=== PATIENT | male | born 1950 | race Caucasian/White ===

== ENCOUNTER 2020-10-30 12:45 | Outpatient (REF) | payer MEDICARE, SELFPAY ==
--- NOTE | 2020-10-30 16:00 | MHC.AU.P13 ---
Adult Audiological Evaluation Date of Visit: 10/30/20 Health Screener Used: Ammonia Technician provided Telugu translation Reason for Appointment: Audiological evaluation to monitor the status of patient's known bilateral sensorineural hearing loss. He notes that the hearing aids have not been working and he hasn't been able to use them. He denies any changes to his hearing or medical history. Previous Hearing Test Results: [facility], 09/25/2018- Moderate sloping to severe sensorineural hearing loss bilaterally. Ear History: Family History of Hearing Loss?: Yes Medical History: Medical History: Diabetes, High Blood Pressure Allergies: Penicillin Hearing Instrument History- Right Ear: Principal Quality Engineer: Sherpaa Model: Hays iQ i1000 GERALDO R Serial Number: [id number] Battery Size: Rechargeable Warranty: 01/04/2020 Dispensed By: [facility] Date of Fittin11/02/2018 Hearing Instrument History- Left Ear: Principal Quality Engineer: Sherpaa Model: Nexidia iQ i1000 GERALDO R Serial Number: [id number] Battery Size: Rechargeable Warranty: 01/04/2020 Dispensed By: [facility] Date of Fittin11/02/2018 Otoscopy: Right Ear: Unremarkable Left Ear: Unremarkable Tympanometry: Right Ear: Normal Middle Ear System (Type A) Left Ear: Normal Middle Ear System (Type A) Hearing Evaluation: Transducer(s) Used: Insert Earphones, Bone Conduction Method: Conventional Audiometry Stimuli Used: Pure Tones Right Ear: Description of Hearing: Moderately severe sloping to severe sensorineural hearing loss from 250-8000 Hz. Left Ear: Description of Hearing: Moderately severe sloping to severe sensorineural hearing loss from 250-8000 Hz. Speech Recognition Threshold (SRT): Method Used: Recorded Lists Stimuli Used: Spondee Words Right Ear: 70 dBHL Left Ear: 70 dBHL Word Discrimination: Method: Recorded Lists Word Lists Used: Lista Bisil?bica (Telugu) Right Ear: 96% at 90 dBHL Left Ear: 92% at 90 dBHL Comparison: Compared to the most recent evaluation: Thresholds have decreased bilaterally. Compared to most recent evaluation: Thresholds have worsened by 10-15 dBHL from 250-2000 Hz bilaterally. Recommendations: Recommendations: Audiological re-evaluation in one year. See Hearing Aid Follow-Up note for more information. Diagnosis: Primary Diagnosis: H90.3 Bilateral Sensorineural Hearing Loss Services Performed: Services Performed: Comprehensive Audiological Evaluation (CPT 30233) Tympanometry (CPT 38953) Signature: Provider: Shannon Bahena, CCC-A
== END 2020-10-30 12:46 | disposition home or self-care (01) ==
LOC: HO.SH 12:45
PROVIDERS: Visit Provider Internal Medicine
DX: Z46.1 Encounter for fitting and adjustment of hearing aid (principal); H90.3 Sensorineural hearing loss, bilateral
CPT/HCPCS: 92557; 92567; 92593; 99499

== ENCOUNTER 2020-11-12 10:12 | Outpatient (REF) | payer MEDICARE, SELFPAY | END 2020-11-12 10:13 | disposition home or self-care (01) | LOC: HO.HAP 10:12 | PROVIDERS: Visit Provider Internal Medicine | DX: Z46.1 Encounter for fitting and adjustment of hearing aid (principal) | CPT/HCPCS: V5014 ==

== ENCOUNTER 2020-11-19 14:43 | Outpatient (REF) | payer MEDICARE, SELFPAY | END 2020-11-19 14:44 | disposition home or self-care (01) | LOC: HO.LAB 14:43 | PROVIDERS: Visit Provider Internal Medicine | DX: Z20.822 Contact with and (suspected) exposure to COVID-19 (principal) | CPT/HCPCS: 36415; C9803; U0003 ==

== ENCOUNTER 2021-01-01 11:01 | Outpatient (RCR) | payer MEDICARE, SELFPAY ==
[2021-01-01 11:14] VITALS: BP 118/68
== END 2021-02-16 09:25 | disposition other institution (70) ==
LOC: HO.PT 11:01
PROVIDERS: PCP Emergency Medicine; Visit Provider Emergency Medicine
DX: H81.11 Benign paroxysmal vertigo, right ear (principal)
CPT/HCPCS: 97112; 97161

== ENCOUNTER 2021-05-25 14:08 | Outpatient (REF) | payer MEDICARE, MEDICAID, SELFPAY ==
[2021-05-25 15:43] LABS: MANUAL DIFF FLAG NO
[2021-05-25 15:46] LABS: Basophils Absolute Auto 0.1 X10*3/uL (0.0-0.2); Basophils Percent Auto 0.5 % (0-2); Eosinophils Absolute Auto 0.5 X10*3/uL (0.0-0.4); Eosinophils Percent Auto 4.6 % (0-4); Hematocrit 37.6 % (42-52); Hemoglobin 12.2 g/dl (14.0-18.0); Imm Gran Abs Auto 0.08 X10*3/uL (0.00-0.03); Imm Gran Pct Auto 0.8 % (0.0-0.4); Lymphocytes Absolute Auto 2.5 X10*3/uL (1.2-4.9); Lymphocytes Percent Auto 24.1 % (20-40); Mean Corpuscular HGB Conc 32.4 g/dl (31.0-36.0); Mean Corpuscular Hemoglobin 30.3 pg (27.0-33.0); Mean Corpuscular Volume 93.3 fL (80-98); Mean Platelet Volume 10.4 fL (9.4-12.4); Monocytes Absolute Auto 1.1 X10*3/uL (0.1-1.2); Monocytes Percent Auto 10.6 % (2-11); Neutrophils Absolute Auto 6.3 X10*3/uL (2.0-8.3); Neutrophils Percent Auto 59.4 % (45-73); Platelet Count 237 X10*3/uL (160-400); Red Blood Count 4.03 X10*6/uL (4.60-5.80); Red Cell Distribution Width 12.9 % (11.0-16.0); White Blood Count 10.5 X10*3/uL (4.8-10.8)
[2021-05-25 16:15] LABS: Alanine Aminotransferase 20 U/L (0-40); Albumin Level 4.4 g/dL (3.5-5.0); Alkaline Phosphatase 68 U/L (39-117); Anion Gap 14 (12-20); Aspartate Amino Transferase 15 U/L (5-37); Bilirubin Total 0.3 mg/dL (0.0-1.0); Blood Urea Nitrogen 27 mg/dL (9-16); Calcium 9.5 mg/dL (8.4-10.2); Carbon Dioxide 21 mmol/L (22-29); Chloride 106 mmol/L (96-108); Estimated Glomerular Filt Rate > 60; Glucose Random 200 mg/dL (60-115); Potassium 4.7 mmol/L (3.3-5.1); Sodium 136 mmol/L (135-145)
== END 2021-05-25 14:09 | disposition home or self-care (01) ==
LOC: HO.LAB 14:08
PROVIDERS: PCP Internal Medicine; Referring Provider Internal Medicine; Visit Provider Nurse Practitioner
DX: Z01.818 Encounter for other preprocedural examination (principal)
CPT/HCPCS: 36415; 80053; 85025

== ENCOUNTER 2021-08-18 15:58 | Outpatient (REF) | payer MEDICARE, MEDICAID, SELFPAY ==
--- NOTE | 2021-08-19 09:03 | MHC.AU.P13 ---
Hearing Instrument Problem Date of Visit: 08/19/21 Right Ear: Psychology Clinician: Jose Model: Gorham iQ i1000 GERALDO R Serial Number: [id number] Repair Warranty: 01/04/2020 Battery Size: Rechargeable Tunnel Elastic Operator Zigzag: Size 4 60 gain Type of Mold: GERALDO earmold with canal lock SN: [id number] Type of Wax Guard: HearClear Dispensed By: [facility] Date of Fittin11/02/2018 Left Ear: Psychology Clinician: Jose Model: Gorham iQ i1000 GERALDO R Serial Number: [id number] Repair Warranty: 11/16/2021 Battery Size: Rechargeable Tunnel Elastic Operator Zigzag: Size 4 60 gain Type of Mold: GERALDO earmold with canal lock SN: [id number] Type of Wax Guard: HearClear Dispensed By: [facility] Date of Fittin11/02/2018 Follow-Up Summary: Left aid dropped off yesterday - not working. Cleaned and replaced wax guard and now amplifying clearly. Recommendations: Recommendations: Hearing instrument follow-up or maintenance as needed. Diagnosis Code(s): Primary Diagnosis: H90.3 Bilateral Sensorineural Hearing Loss Signature: Provider: MAZIN Lema-
== END 2021-08-18 15:59 | disposition home or self-care (01) ==
LOC: HO.HAP 15:58
PROVIDERS: Visit Provider Internal Medicine
DX: Z13.89 Encounter for screening for other disorder (principal)

== ENCOUNTER 2021-08-20 08:06 | Outpatient (REF) | payer MEDICARE, MEDICAID, SELFPAY | END 2021-08-20 08:07 | disposition home or self-care (01) | LOC: HO.HAP 08:06 | PROVIDERS: Visit Provider Internal Medicine | DX: Z13.89 Encounter for screening for other disorder (principal) ==

== ENCOUNTER 2023-02-01 11:32 | Outpatient (REF) | payer MEDICARE, MEDICAID, SELFPAY | END 2023-02-01 11:33 | disposition home or self-care (01) | LOC: HO.HAP 11:32 | PROVIDERS: Visit Provider Internal Medicine | DX: Z46.1 Encounter for fitting and adjustment of hearing aid (principal); H90.3 Sensorineural hearing loss, bilateral | CPT/HCPCS: 92592; 99499 ==

== ENCOUNTER 2023-03-24 15:56 | Outpatient (REF) | payer MEDICARE, MEDICAID, SELFPAY | END 2023-03-24 15:57 | disposition home or self-care (01) | LOC: HO.HAP 15:56 | DX: Z13.89 Encounter for screening for other disorder (principal) ==

== ENCOUNTER 2023-05-04 13:14 | Outpatient (REF) | payer MEDICARE, MEDICAID, SELFPAY | END 2023-05-04 13:15 | disposition home or self-care (01) | LOC: HO.HAP 13:14 | PROVIDERS: Visit Provider Internal Medicine | DX: Z13.89 Encounter for screening for other disorder (principal) ==

== ENCOUNTER 2023-05-05 09:34 | Outpatient (REF) | payer MEDICARE, MEDICAID, SELFPAY ==
--- NOTE | 2023-05-05 10:35 | MHC.AU.HA3 ---
Hearing Instrument Follow-Up- Binaural Date of Visit: 05/05/23 Right Ear: Aston, Model, Color, Serial Number: Jose Hart iQ 1000 GERALDO R SN: [id number] Color: Black Ccie Repair Warranty: 01/04/2020 Battery Size: Rechargeable Relations Director/Slim Tube: Size 4 60 gain Earmold/Dome/CShell/SlimTip:GERALDO earmold with canal lock SN: [id number] Type of Wax Guard: HearClear Dispensed By: [facility] Date of Fittin11/02/2018 Left Ear: Aston, Model, Color, Serial Number: Jose Hart iQ 1000 GERALDO R SN: [id number] Color: Black Ccie Repair Warranty: 11/16/2021 Battery Size: Rechargeable Relations Director/Slim Tube: Size 4 60 gain Earmold/Dome/CShell/SlimTip: GERALDO earmold with canal lock SN: [id number] Type of Wax Guard: HearClear Dispensed By: [facility] Date of Fittin11/02/2018 Follow-Up Summary: Indra returned for routine hearing aid maintenance following updated hearing evaluation (see audio). Did not reprogram as hearing is stable and Indra is happy with the sound quality. Cleaned both hearing aids and ear molds. Replaced wax guards. Indra reported some times molds get plugged with wax. Colin'ed how to change wax guard. Indra purchased one package of wax guard to be able to change at home. He has no other concerns with his hearing aids at this time. Recommendations: Hearing instrument follow-up or maintenance as needed. Diagnosis Code(s): Primary Diagnosis: H90.3 Bilateral Sensorineural Hearing Loss Signature: Provider: Saji Black, [facility]
== END 2023-05-05 09:35 | disposition home or self-care (01) ==
LOC: HO.SH 09:34
PROVIDERS: Visit Provider Internal Medicine
DX: H90.3 Sensorineural hearing loss, bilateral (principal)
CPT/HCPCS: 92557; 92567; 92593; 99499

== ENCOUNTER 2023-05-05 10:16 | Outpatient (REF) | payer SELFPAY | END 2023-05-05 10:17 | disposition home or self-care (01) | LOC: HO.HAP 10:16 | PROVIDERS: Visit Provider Internal Medicine | DX: Z46.1 Encounter for fitting and adjustment of hearing aid (principal) | CPT/HCPCS: V5267 ==

== ENCOUNTER 2023-06-15 11:49 | Outpatient (REF) | payer MEDICARE, MEDICAID, SELFPAY ==
[2023-06-15 13:20] LABS: MANUAL DIFF FLAG NO
[2023-06-15 13:30] LABS: Basophils Absolute Auto 0.1 X10*3/uL (0.0-0.2); Basophils Percent Auto 0.6 % (0-2); Eosinophils Absolute Auto 0.5 X10*3/uL (0.0-0.4); Eosinophils Percent Auto 4.8 % (0-4); Hematocrit 42.4 % (42.0-52.0); Hemoglobin 13.9 g/dl (14.0-18.0); Imm Gran Abs Auto 0.06 X10*3/uL (0.00-0.03); Imm Gran Pct Auto 0.6 % (0.0-0.4); Lymphocytes Absolute Auto 2.7 X10*3/uL (1.2-4.9); Lymphocytes Percent Auto 24.9 % (20-40); Mean Corpuscular HGB Conc 32.8 g/dl (31.0-36.0); Mean Corpuscular Hemoglobin 31.3 pg (27.0-33.0); Mean Corpuscular Volume 95.5 fL (80.0-98.0); Mean Platelet Volume 11.1 fL (9.4-12.4); Monocytes Percent Auto 9.4 % (2-11); Neutrophils Absolute Auto 6.5 x10*3/uL (2.0-8.3); Neutrophils Percent Auto 59.7 % (45-73); Platelet Count 243 X10*3/uL (160-400); Red Blood Count 4.44 X10*6/uL (4.60-5.80); Red Cell Distribution Width 13.1 % (11.0-16.0); White Blood Count 10.8 X10*3/uL (4.8-10.8)
[2023-06-15 14:11] LABS: Alanine Aminotransferase 30 U/L (0-40); Albumin Level 4.5 g/dL (3.5-5.0); Alkaline Phosphatase 70 U/L (39-117); Anion Gap 13 (12-20); Aspartate Amino Transferase 17 U/L (5-37); Bilirubin Direct 0.2 mg/dL (0.0-0.5); Bilirubin Total 0.4 mg/dL (0.0-1.0); Blood Urea Nitrogen 28 mg/dL (9-16); Calcium 10.4 mg/dL (8.4-10.2); Carbon Dioxide 25 mmol/L (22-29); Chloride 107 mmol/L (96-108); Cholesterol 128 mg/dL (<200); Estimated Glomerular Filt Rate > 60; Glucose Random 110 mg/dL (60-115); HDL Cholesterol 51 mg/dL (>40); LDL Cholesterol Calculated 50 mg/dL (<100); Potassium 4.8 mmol/L (3.3-5.1); Sodium 140 mmol/L (135-145); Total Protein 7.6 g/dL (6.5-8.0); Triglycerides 138 mg/dL (<150)
[2023-06-15 14:39] LABS: Creatinine Urine 53.56 mg/dL; Microalbum/Creatinine Ratio Ur 11.2 ug/mg cr (<30)
== END 2023-06-15 11:50 | disposition home or self-care (01) ==
LOC: HO.HHCL 11:49
PROVIDERS: Visit Provider Internal Medicine
DX: E11.9 Type 2 diabetes mellitus without complications (principal); I10 Essential (primary) hypertension
CPT/HCPCS: 36415; 80048; 80061; 80076; 82043; 85025

== ENCOUNTER 2024-06-07 14:30 | Outpatient (REF) | payer MEDICARE, MEDICAID, SELFPAY ==
--- NOTE | 2024-06-07 15:27 | MHC.AU.MED ---
Medical Clearance for Hearing Instrumentation Date: 06/07/24 Patient Name: Indra Malcolm Date of : 1950 Primary Care Provider: Toma Lund MD We have seen your patient on 06/07/24 and have determined that they are a candidate for amplification (See accompanying report). Specifically, they would benefit from: Hearing aid use in both ears There is a statute that addresses Medical Evaluation Requirements prior to fitting a patient with a hearing aid. According to [place] statute 265 CMR:6.03(1), (a) General. Except as provided in 265 CMR 6.03(1)(b), a college tutor shall not sell a hearing aid unless the prospective user has presented to the college tutor a written statement signed by a licensed physician that states that the patient's hearing loss has been medically evaluated and the patient may be considered a candidate for a hearing aid. The medical evaluation must have taken place within the preceding six months. Please note: Due to the [place] Statute referenced above, we cannot accept a signature other than that of a licensed physician. DRUG REGULATORY AFFAIRS SPECIALIST and PA signatures cannot be accepted. I am in agreement with the above recommendation. There is no medical contraindication for hearing instrumentation. Physician Signature Date Physician Name (Printed)
--- NOTE | 2024-06-07 15:35 | MHC.AU.HA1 ---
Hearing Aid Evaluation Date of Visit: 06/07/24 Historical Information: Description of Hearing: Moderately-severe to severe sensorineural hearing loss, bilaterally Current personal amplification information: Jose Hart [id number] GERALDO-[id number] fit in October 2018 Summary: Accompanied by director case management, Kelly. Has only worn left hearing aid for several months as right hearing aid has not been working. [place] supervisor; however, did not have proper length/strength in stock. Indra is eligible for new hearing aids. Opted to pursue new hearing aids instead of fixing current right hearing aid. He will continue to use just left hearing aid until new hearing aids arrive. He has right hearing aid/earmold to keep as back up if he ever wants it repaired in the future. Impressions taken, bilaterally, without incident. Will continue with rechargeable RITE style hearing aid with earmold. Indra was agreeable to changing manufacturers. Hearing Aid Prescription: Based on the individual?s shared listening needs, communication environments, dexterity, desire for connectivity, and personal preferences, the following prescription for amplification has been made: Right ear: Make, Model, Color: Phonak Audeo L70-R Color: Silver Duffy Battery Size: Rechargeable Nickel Operator/Slim Tube: 2P Type of Earmold/Dome/CShell/SlimTip: SlimTip with canal lock Left ear: Left ear prescription to be same as Right Hearing Aid above: Make, Model, Color: Phonak Audeo L70-R Color: Silver Duffy Battery Size: Rechargeable Nickel Operator/Slim Tube: 2P Type of Earmold/Dome/CShell/SlimTip: SlimTip with canal lock Accessories/Assistive Technology: Heating Element Winder Plan of Care: Patient wishes to purchase hearing aids as prescribed Action Taken/Action Needed: Medical Clearance to be requested from PCP/ENT. Hearing Instrument Fitting to be scheduled when materials arrive Primary Diagnosis: H90.3 Bilateral Sensorineural Hearing Loss Signature: Provider: Saji Black, [facility]
== END 2024-06-07 14:31 | disposition home or self-care (01) ==
LOC: HO.SH 14:30
PROVIDERS: Visit Provider Internal Medicine
DX: Z01.118 Encounter for examination of ears and hearing with other abnormal findings (principal); Z46.1 Encounter for fitting and adjustment of hearing aid; H90.3 Sensorineural hearing loss, bilateral
CPT/HCPCS: 92552; 92556; 92591; V5275

== ENCOUNTER 2024-06-16 21:50 | Inpatient (IN) | payer MEDICARE, MEDICAID, SELFPAY ==
--- NOTE | 2024-06-16 | ECG_ITS ---
Test Reason : ABD PAIN Blood Pressure : / mmHG Vent. Rate : 066 BPM Atrial Rate : 066 BPM P-R Int : 174 ms QRS Dur : 080 ms QT Int : 378 ms P-R-T Axes : 002 005 044 degrees QTc Int : 396 ms Sinus rhythm with Premature atrial complexes with Aberrant conduction Low voltage QRS Borderline ECG No previous ECGs available Referred By: Generic ED Physician Electronically Signed By:DEANA ARTEAGA
--- NOTE | ~2024-06-16 | CT_ITS ---
EXAMINATION: CT ABDOMEN AND PELVIS WITH CONTRAST CLINICAL INFORMATION: Right lower quadrant and right flank pain COMPARISON: None TECHNIQUE: Multidetector volumetric imaging was performed of the abdomen and pelvis following administration of 100 mL Omnipaque 300 intravenous contrast. Oral contrast was administered. Sagittal and coronal reformatted images were obtained on the technologist's workstation. This CT examination was performed using dose optimization techniques as appropriate, variously including the following: *Automated exposure control *Adjustment of mA and/or kV according to patient size (this includes techniques or standardized protocols for targeted exams where dose is matched to indication/reason for exam; i.e. extremities or head) *Use of iterative reconstruction technique DLP: 687 mGy-cm FINDINGS: Lung bases: Bibasilar hazy opacities. Metallic density in the right lung base. Correlate with clinical history. ABDOMINAL AND PELVIC WALL: Unremarkable. LIVER AND BILIARY TREE: Unremarkable. GALLBLADDER: Unremarkable. PANCREAS: Unremarkable. SPLEEN: Indeterminate inferior splenic R. Hdez hypoattenuating 4.8 x 2.8 cm cystic lesion probable internal septations. ADRENAL GLANDS: Coarse calcifications in the left adrenal gland are noted. KIDNEYS AND URETERS: Benign-appearing left renal cyst. Right kidney is not visualized and may be surgically or congenitally absent. GASTROINTESTINAL TRACT: Scattered colonic diverticulosis, no findings of diverticulitis. There are dilated loops of small bowel involving the proximal jejunum. With a probable transition point in the distal jejunum/proximal ileum in the lower left hemiabdomen (4:451). There is partial congenital malrotation of the small bowel. Appendix is within normal limits. VASCULAR: Unremarkable. LYMPH NODES: No lymphadenopathy. FREE FLUID: No free fluid. BLADDER: Unremarkable. PELVIC VISCERA: Unremarkable. OSSEOUS STRUCTURES: Unremarkable. CT/CT abdomen pelvis w IV con IMPRESSION: * Partial small bowel obstruction involving the proximal jejunum with a probable transition point in the distal jejunum/proximal ileum in the lower left hemiabdomen. 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 * Indeterminate inferior splenic 4.8 cm cystic lesion. * Bibasilar hazy opacities.Metallic density in the right lung base. Correlate with clinical history. * Right kidney is not visualized and may be congenitally or surgically absent. * Coarse calcifications of the left adrenal gland may be sequela of prior trauma/hemorrhage. Electronically signed by: Elke Garcias MD 06/17/2024 12:32 AM EDT RP
--- NOTE | 2024-06-16 22:19 | MHC.EDTECH ---
Patient BIBA changed into hospital attire,placed on the floor care specialist and vitals taken,EKG completed per order and sighed by provider,family at bedside
[2024-06-16 22:21] VITALS: BP 129/76; BP 156/74; PULSE 63; PULSE 64; RESP 17; TEMP 36.7; O2SAT 96; BMI 30.1
[2024-06-16 23:16] LABS: Hematocrit 40.5 % (42.0-52.0); Hemoglobin 13.5 g/dl (14.0-18.0); Mean Corpuscular HGB Conc 33.3 g/dl (31.0-36.0); Mean Corpuscular Hemoglobin 31.3 pg (27.0-33.0); Platelet Count 227 X10*3/uL (160-400); Red Blood Count 4.31 X10*6/uL (4.60-5.80); Red Cell Distribution Width 13.2 % (11.0-16.0); White Blood Count 13.4 X10*3/uL (4.8-10.8)
--- NOTE | 2024-06-16 23:19 | ED_ITS ---
HPI - Abdominal Pain General Chief Complaint: Abdominal Pain Stated Complaint: abd pain Time Seen by Provider: 06/16/24 23:18 Source: patient and family (Daughter) Mode of arrival: ambulatory Limitations: language barrier (Cape Verdean speaking only, iPad photolithographic stripper used) History of Present Illness ED Provider: Dr. 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 Patient points to his epigastric area, right lower quadrant and right flank area when asked to localize the pain. States the pain came on suddenly in his severe. He was having difficulty describing the pain. He states this is 1st episode of this type of pain. Patient had nausea but no vomiting. He denied fever and chills. Related Data Home Medications ?Medication ?Instructions ?Recorded ?Confirmed acetaminophen 500 mg oral powder 500 mg PO Q6H PRN 05/25/21 05/25/21 packet (Tylenol Extra Strength) atorvastatin 20 mg tablet 20 mg PO BEDTIME 05/25/21 05/25/21 clindamycin HCl 150 mg capsule 150 mg PO TID 05/25/21 05/25/21 glipizide 10 mg tablet 10 mg PO DAILY 05/25/21 05/25/21 ibuprofen 600 mg tablet 600 mg PO Q8H PRN 05/25/21 05/25/21 lisinopril 20 mg tablet 20 mg PO DAILY 05/25/21 05/25/21 meclizine 12.5 mg tablet 12.5 mg PO DAILY 05/25/21 05/25/21 verapamil 180 mg 24 hr 180 mg PO DAILY 05/25/21 05/25/21 capsule,extended release zoster vaccine live (PF) 19,400 ml subcut 05/25/21 05/25/21 unit/0.65 mL subcutaneous suspension (Zostavax (PF)) Previous Rx's ?Medication ?Instructions ?Recorded bisacodyl 5 mg tablet,delayed 10 mg (2 x 5 mg) PO BEDTIME 2 days 05/25/21 release (Dulcolax (bisacodyl)) #4 tabs peg 3350-electrolytes 236 240 ml PO Q10M 1 day #4,000 mL 05/25/21 gram-22.74 gram-6.74 gram-5.86 gram solution (Golytely) Allergies Allergy/AdvReac Type Severity Reaction Status Date / Time Penicillins Allergy Unknown Unknown Verified 06/16/24 22:28 [facility] Past Medical History Medical History (Updated 06/17/24 @ 02:00 by Beto Barahona MD) Renal calculi Diabetes Elevated cholesterol HTN (hypertension) Surgical History (Updated 08/04/21 @ 13:54 by Gissel Maya RN) H/O colonoscopy H/O right nephrectomy Family History Family History Father No problems noted. Mother No problems noted. Brother No problems noted. Brother No problems noted. Brother No problems noted. Sister No problems noted. Sister No problems noted. Sister No problems noted. Daughter No problems noted. Social History Social History Advance Directives: No Advance Directives Information Provided: No Physical Exam ED Vital Signs: Vital Signs - 24 hr 06/16/24 22:21 Temperature 98.0 F Pulse Rate 63 Respiratory Rate 17 Blood Pressure 129/76 Pulse Oximetry 96 Oxygen Delivery Method Room Air BMI result Body Mass Index 30.1 Vital signs were noted Exam: General: Awake, alert, oriented to person, appears to be in moderate distress secondary to his pain Head: Normocephalic, atraumatic EENT: PERRL, Lids normal, sclera normal, conjunctiva normal, nose normal , ears normal, throat without erythema or exudates Neck: Supple, no adenopathy Lung: breath sounds symmetric, no wheezing, rales or rhonchi Chest: symmetric movement, nontender Heart: regular rate and rhythm, normal S1, S2 no murmurs or rubs Abdomen: Abdomen is distended, moderately epigastric, right lower quadrant and suprapubic tenderness, normoactive bowel sounds, no rebound, no voluntary or involuntary guarding Back: no vertebral tenderness, moderate right CVA tender Extremities: no deformities, moves all extremities symmetrically Medical Decision Making Medical Decision Making MDM Narrative: 74-year-old male with a history of renal calculi, diabetes, high cholesterol, hypertension, 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 Patient states this is 1st episode of this type of pain. Vital signs were normal. Abdominal exam revealed distended abdomen with moderate epigastric, right lower quadrant and right CVA tenderness. Differential diagnosis: ?Includes but is not limited to pancreatitis, gastritis, peptic ulcer disease, appendicitis, renal colic, ureteral stone, urinary tract infection Following evaluation was ordered: CBC, CMP, lipase, urinalysis, troponin, EKG, CT scan abdomen pelvis with IV contrast Patient was initially treated with the following: IV insert, lactated Ringer's x1 L, morphine 4 mg IV, Zofran 4 mg IV Course: 01:17 My independent interpretation patient's laboratory evaluation is as follows: WBC elevated 13,400. Patient's BUN is elevated 29-this is chronic. Troponin was below detectable limits. Lipase was normal. CT scan of the abdomen pelvis with IV contrast is consistent with partial small- bowel obstruction involving the proximal jejunum with a probable transition point the distal jejunum. I did discuss the patient's disposition over tiger text with the covering surgeon, Dr. Ny and he will admit the patient for further management. Admission/Observation Consideration of admission/observation: Escalation of care including admission/observation considered Lab Data MDM Lab Attestation statement: I reviewed the patient's lab results. 06/16/24 23:11 06/16/24 23:11 Labs: Lab Results 06/16/24 Range/Units 23:11 WBC 13.4 H (4.8-10.8) X10*3/uL RBC 4.31 L (4.60-5.80) X10*6/uL Hgb 13.5 L (14.0-18.0) g/dl Hct 40.5 L (42.0-52.0) % MCV 94.0 (80.0-98.0) fL MCH 31.3 (27.0-33.0) pg MCHC 33.3 (31.0-36.0) g/dl RDW 13.2 (11.0-16.0) % Plt Count 227 (160-400) X10*3/uL MPV 10.0 (9.4-12.4) fL Absolute Nucleated RBC 0.000 (0.0-0.012) X10*3/uL Nucleated RBC % (auto) 0.0 (0.0-0.2) /100WBC Sodium 141 (135-145) mmol/L Potassium 4.8 (3.3-5.1) mmol/L Chloride 107 (96-108) mmol/L Carbon Dioxide 23 (22-29) mmol/L Anion Gap 16 (12-20) BUN 29 H (9-16) mg/dL Creatinine 1.33 (0.5-1.4) mg/dL Estim Creat Clear Calc 54.7 Estimated GFR 53 Random Glucose 158 H (60-115) mg/dL Calcium 10.2 (8.4-10.2) mg/dL Total Bilirubin 0.5 (0.0-1.0) mg/dL AST 19 (5-37) U/L ALT 25 (0-40) U/L Alkaline Phosphatase 60 (39-117) U/L Troponin I High Sens < 2.7 (<3.5-35.0) ng/L Total Protein 7.5 (6.5-8.0) g/dL Albumin 4.4 (3.5-5.0) g/dL Lipase 63 (8-78) U/L Independent Interpretation I performed an independent interpretation of an: EKG Interpretation: My independent interpretation patient's 12 EKG done at 22:11 hours is as follows: Normal sinus rhythm rate of 66, normal NV interval, QRS duration QTC interval, no ST segment elevation, no ST segment depression, no significant T- wave abnormalities, no PACs, no PVCs Radiology Impression Discussion of test interpretation with radiology: I have reviewed the radiologist's reading. Radiologist Impression: CT abdomen pelvis w IV con IMPRESSION: * Partial small bowel obstruction involving the proximal jejunum with a probable transition point in the distal jejunum/proximal ileum in the lower left hemiabdomen. 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 * Indeterminate inferior splenic 4.8 cm cystic lesion. * Bibasilar hazy opacities.Metallic density in the right lung base. Correlate with clinical history. * Right kidney is not visualized and may be congenitally or surgically absent. * Coarse calcifications of the left adrenal gland may be sequela of prior trauma/hemorrhage. Electronically signed by: Elke Garcias MD 06/17/2024 12:32 AM EDT Dictated By: Elke Garcias MD Medications Administered Discontinued Medications Generic Name Dose Route Start Last Admin Trade Name Elvira PRN Reason Stop Dose Admin Lactated Ringer's 1,000 mls @ 999 mls/hr 06/16/24 23:33 06/16/24 23:54 Lr IV 06/17/24 00:33 999 mls/hr .Q1H1M STA Administration Iohexol 85 ml 06/17/24 00:16 06/17/24 00:16 Iohexol 350 Mg/Ml 100 Ml Infus..Btl IV 06/17/24 00:17 85 ml ONCE ONE Administration Morphine Sulfate 4 mg 06/16/24 23:33 06/16/24 23:52 Morphine Sulfate 4 Mg/Ml Cartridge IVPUSH 06/16/24 23:34 4 mg ONCE STA Administration Protocol Ondansetron HCl 4 mg 06/16/24 23:33 06/16/24 23:52 Ondansetron Hcl 4 Mg/2 Ml Vial IVPUSH 06/16/24 23:34 4 mg ONCE ONE Administration Critical Care Time Critical Care Time Critical Care Time: Yes Total Critical Care Time: 35 Attestation: Critical Care: The patient was critically ill with a high probability of imminent or life threatening deterioration. I spent greater than 30 minutes of discontinuous time evaluating the patient,delivering critical care at the bedside, discussing and evaluating pertinent data with consultants. Critical care time does not include time spent performing separately billable procedures or teaching. Total time spent performing critical care was 35 minutes. Discharge Plan Discharge Clinical Impression: Partial obstruction of small intestine Patient Disposition: Admitted As Inpatient Print Language: Cape Verdean
[2024-06-16 23:36] LABS: Alanine Aminotransferase 25 U/L (0-40); Albumin Level 4.4 g/dL (3.5-5.0); Alkaline Phosphatase 60 U/L (39-117); Anion Gap 16 (12-20); Aspartate Amino Transferase 19 U/L (5-37); Bilirubin Total 0.5 mg/dL (0.0-1.0); Blood Urea Nitrogen 29 mg/dL (9-16); Calcium 10.2 mg/dL (8.4-10.2); Carbon Dioxide 23 mmol/L (22-29); Chloride 107 mmol/L (96-108); Creatinine Clr Calc Pharmacy 54.7; Estimated Glomerular Filt Rate 53; Glucose Random 158 mg/dL (60-115); Lipase 63 U/L (8-78); Potassium 4.8 mmol/L (3.3-5.1); Sodium 141 mmol/L (135-145); Total Protein 7.5 g/dL (6.5-8.0)
[2024-06-16 23:39] LABS: Troponin-I High Sensitivity < 2.7 ng/L (<3.5-35.0)
[2024-06-16] MEDS: Morphine Sulfate 4 MG/ML CARTRIDGE IVPUSH (23:52)
[2024-06-16] MEDS: ondansetron HCL 4 MG/2 ML VIAL IVPUSH (23:52)
[2024-06-16] MEDS: Lactated Ringers 1,000 ML 999 ML IV (23:54)
--- NOTE | 2024-06-16 23:59 | PC.NURSE ---
Pt BIBA for reports of upper epigastric pain. Pt Faroese speaking , accounts payable associate required, pt still having difficulty understanding and identifying pain scale. some n/v upon arrival. Labs drawn and IV placed #20 L-forearm. MD assessed pt and order for zofran, morphine and LR administered. PT at CT at this time.
[2024-06-17] MEDS: iohexoL 350 MG/ML 100 ML INFUS..BTL 85 ML IV (00:16)
[2024-06-17] MEDS: Lactated Ringers 1,000 ML 100 ML IVCONT ×2 (06:20→16:06)
[2024-06-17 07:35] VITALS: BP 111/68; PULSE 79; RESP 18; TEMP 37.1; O2SAT 95
--- NOTE | 2024-06-17 07:36 | PC.NURSE ---
pt vomiting at this rn arrival. mostly bile. is unable to elaborate on sx. states epigastric pain w/o details. skin pwd. awaits bed assignment
[2024-06-17] MEDS: ondansetron HCL 4 MG/2 ML VIAL IVPUSH (07:37)
[2024-06-17] MEDS: HYDROmorphone HCl 1 MG/ML SYRINGE 0.5 MG IVPUSH (07:38)
--- NOTE | 2024-06-17 08:37 | PHA.MEDREC ---
Addendum entered by Linda Guo RPh 06/17/24 09:18: [facility] REVIEWED Original Note: Pharmacy Consult ? Medication Reconciliation Pharmacy has completed the medication reconciliation. Utilized medical interpreter services.
[2024-06-17 08:46] LABS: Glucose, Whole Blood 145 mg/dL (60-115)
[2024-06-17 10:05] VITALS: BP 129/74; PULSE 95; RESP 18; TEMP 36.6; O2SAT 96
--- NOTE | 2024-06-17 10:42 | PC.NURSE ---
Meds from home not ordered yet,patient is a diabetic,? need for sliding scale,Dr. Ny notified
[2024-06-17 13:32] LABS: Appearance Urine Clear; Color Urine Yellow; Glucose Urine UA >=1000 mg/dL (Negative); Leukocyte Esterase Urine Small (1+) (Negative); Nitrite Urine Negative (Negative); PH 6.5 (5.0-9.0); Specific Gravity - Urine 1.025 (1.005-1.025); UMIC TRIGGER UACC YES; Urine Blood Negative (Negative); Urine Ketones Negative (Negative); Urine Protein Negative (Neg-Trace)
[2024-06-17 13:37] LABS: Bacteria Urine 1+ (None Seen); Hyaline Casts Urine 0-2 /LPF (0-2); RBC Urine 0-2 /HPF (0-2); UACC Culture Trigger YES
--- NOTE | 2024-06-17 13:59 | P.CONHOSP_ITS ---
History of Present Illness Data of Consult Service Date: 06/17/24 Primary Care Provider: Unknown Physician HPI Reason for consult: Medical management Patient is a 74-year-old Lithuanian-speaking male with a PMH significant for HLD, HTN, afx-tkozugb-sezdfiesy type 2 diabetes, and renal calculi with right nephrectomy 10 years prior in [place] who presented to the emergency department complaining of severe abdominal pain x1 day. Workup in the ED included CT abd/pelvis which found partial small obstruction and patient was admitted to the hospital under general surgery services with hospitalist consult for medical management. Patient seen with special inspector services. He is a rather poor and vague historian, unaware of his PMH or current situation. Often requires multiple prompting to answer questions. Patient continues to complain of epigastric pain. Nausea and vomiting yesterday and this morning, down the past few hours. Has not passed gas or had a bowel. Denies chest pain/pressure, palpitations. No fever, chills. Denies shortness or breath or difficulty breathing. Review of Systems 2 Review of Systems: Epigastric abdominal pain No bowel movement, not passing gas Nausea and vomiting last night and early this morning, currently better controlled Denies chest pain/pressure, palpitations No shortness a breath or difficulty breathing COUNT INCLUDES THE [facility] Medical History Renal calculi Diabetes Elevated cholesterol HTN (hypertension) Family History Father No problems noted. Mother No problems noted. Brother No problems noted. Brother No problems noted. Brother No problems noted. Sister No problems noted. Sister No problems noted. Sister No problems noted. Daughter No problems noted. Surgical History H/O colonoscopy H/O right nephrectomy Social History Household Members: None Housing: Apartment Do you presently have visiting nurse or other home services: Yes Alcohol intake: unknown Patient Tobacco Use Status: Former Tobacco user Smoked in Last 30 Days: No Use of substances other than those prescribed or required for medical reasons: No Have you been hit, kicked, punched, or otherwise hurt by someone within the past year? If so, by whom?: No Do you feel safe in your current relationship?: Yes Is there a partner from a previous relationship who is making you feel unsafe now?: No Are you made to feel afraid or neglected: No Jehovah'S Witness Healthcare Practices: christian Advance Directives: No Advance Directives Information Provided: No Do you have a plan to hurt others: No Plan Recently lost weight without trying: No Nutrition Risks: No Nutritional Risk Meds Allergies Allergy/AdvReac Type Severity Reaction Status Date / Time Penicillins Allergy Unknown Unknown Verified 06/16/24 22:28 Active Medications: Current Medications Acetaminophen (Acetaminophen 325 Mg Tablet) 650 mg PO Q6H PRN PRN Reason: Pain, Mild (Pain Scale 1-3), fever or headache Al Hydroxide/Mg Hydroxide (Magnesium Hydrox/Alum Hydrox 30 Ml Oral.Susp) 30 ml PO Q4H PRN PRN Reason: Heartburn Calcium Carbonate (Calcium Carbonate 750 Mg Tab.Chew) 750 mg PO Q4H PRN PRN Reason: Heartburn Hydromorphone HCl (Hydromorphone Hcl 1 Mg/Ml Syringe) 0.5 mg IVPUSH Q4H PRN; Protocol PRN Reason: Pain, Severe (Pain Scale 7-10) Last Admin: 06/17/24 07:38 Dose: 0.5 mg Lactated Ringer's (Lr) 1,000 mls @ 100 mls/hr IVCONT .Q10H ARTIE Last Admin: 06/17/24 06:20 Dose: 100 mls/hr Magnesium Hydroxide (Milk Of Magnesia 30 Ml Oral.Susp) 30 ml PO DAILY PRN PRN Reason: Constipation Melatonin (Melatonin 3 Mg Tablet) 6 mg PO BEDTIME PRN PRN Reason: Insomnia Ondansetron HCl (Ondansetron Hcl 4 Mg/2 Ml Vial) 4 mg IVPUSH Q8H PRN PRN Reason: Nausea and Vomiting Last Admin: 06/17/24 07:37 Dose: 4 mg Sodium Chloride (0.9 % Sodium Chloride Flush 3 Ml Syringe) 3 ml IVFLUSH QSHIFT ARTIE Last Admin: 06/17/24 07:39 Dose: Not Given Home Medications ?Medication ?Instructions ?Recorded ?Confirmed ?Last Taken ?Type lisinopril 20 mg tablet 20 mg PO DAILY 05/25/21 06/17/24 06/16/24 History verapamil 180 mg 24 hr 180 mg PO DAILY 05/25/21 06/17/24 06/16/24 History capsule,extended release atorvastatin 40 mg tablet 40 mg PO DAILY 06/17/24 06/17/24 06/16/24 History dulaglutide 0.75 mg/0.5 mL 0.75 mg subcut FR@0900 06/17/24 06/17/24 06/15/24 History subcutaneous pen injector (Trulicity) empagliflozin 25 mg-metformin ER 1 tab PO DAILY 06/17/24 06/17/24 06/16/24 History 1,000 mg tablet,extended release 24hr (Synjardy XR) glipizide 10 mg tablet, extended 10 mg PO DAILY 06/17/24 06/17/24 06/16/24 History release 24 hr Physical Exam 2 Vital Signs and Narrative: Vital Signs: Last Vital Signs Temp 97.8 F 06/17/24 10:05 Pulse 95 06/17/24 10:05 Resp 18 06/17/24 10:05 BP 129/74 06/17/24 10:05 Pulse Ox 96 06/17/24 10:05 O2 Del Method Room Air 06/17/24 10:05 BMI result Body Mass Index 30.1 General: AOx2, not fully to time or place. In no acute distress Resp: CTA bilaterally CVS: S1, S2, RRR GI: +BS, soft with mild distention, epigastric tenderness Skin: Warm, dry Neuro: Cranial nerves II-XII grossly intact bilaterally. Motor grossly intact bilaterally Extremities: No edema Results Labs 06/16/24 23:11 06/16/24 23:11 Labs: Laboratory Results - last 24 hr 06/16/24 06/17/24 06/17/24 23:11 08:42 13:09 MCV 94.0 MCH 31.3 MCHC 33.3 RDW 13.2 Plt Count 227 MPV 10.0 Absolute Nucleated RBC 0.000 Nucleated RBC % (auto) 0.0 Anion Gap 16 Estim Creat Clear Calc 54.7 Estimated GFR 53 POC Glucose 145 H Random Glucose 158 H Calcium 10.2 Total Bilirubin 0.5 AST 19 ALT 25 Alkaline Phosphatase 60 Troponin I High Sens < 2.7 Total Protein 7.5 Albumin 4.4 Lipase 63 Urine Color Yellow Urine Appearance Clear Urine pH 6.5 Ur Specific [place] 1.025 Urine Protein Negative Urine Glucose (UA) >=1000 H Urine Ketones Negative Urine Blood Negative Urine Nitrite Negative Ur Leukocyte Esterase Small (1+) H Urine RBC 0-2 Urine WBC 11-20 H Ur Squamous Epith Cells 3-5 Urine Bacteria 1+ Hyaline Casts 0-2 Imaging Radiologist's Impressions: Impressions Abdomen/Pelvis CT 06/17/24 00:00 IMPRESSION: * Partial small bowel obstruction involving the proximal jejunum with a probable transition point in the distal jejunum/proximal ileum in the lower left hemiabdomen. 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 * Indeterminate inferior splenic 4.8 cm cystic lesion. * Bibasilar hazy opacities.Metallic density in the right lung base. Correlate with clinical history. * Right kidney is not visualized and may be congenitally or surgically absent. * Coarse calcifications of the left adrenal gland may be sequela of prior trauma/hemorrhage. Electronically signed by: Elke Garcias MD 06/17/2024 12:32 AM EDT RP Assessment and Plan (1) Partial obstruction of small intestine: Status: Acute Plan Patient is a 74-year-old Lithuanian-speaking male with a PMH significant for HLD, HTN, cbx-vxibsko-mvwecbovo type 2 diabetes, and renal calculi with right nephrectomy 10 years prior in [place] who presented to the emergency department complaining of severe abdominal pain x1 day. Workup in the ED included CT abd/pelvis which found partial small obstruction and patient was admitted to the hospital under general surgery services with hospitalist consult for medical management. Partial SBO Plan per General Surgery including analgesics Pt without NGT Currently no N/V Non-insulin dependent diabetes Currently on clear liquid diet Will cover with sliding scale insulin Hold Trulicity, Synjardy, and glipizide Hx of right nephrectomy Ten years prior in [place] Creatinine slightly elevated at 1.33, up from 1.18 on 06/15/2023 Patient on maintenance fluids HTN Currently normotensive Hold lisinopril d/t elevated creatinine Will resume verapamil tomorrow HLD Continue statin Attending: Dr. Willingham Thank you for allowing us to participate in the care of this patient. Will continue to follow with you for now. Please re-consult if any acute complaints or issues arise.
--- NOTE | 2024-06-17 14:36 | P.HPGS_ITS ---
History of Present Illness History of Present Illness Date of Service: 06/17/24 Chief complaint: sbo Narrative: Indra Malcolm is a 74 year old male presents here with 1 day history of epigastric and lower abdominal pain. He has never had this before. Otherwise tolerating a diet. Has regular bowel habits. He states he is passing flatus. Discomfort is more epigastric today. Patient denies any sick contacts, no unusual diet, no new meds, no recent foreign travel. Workup including CT scan really demonstrated no acute surgical findings. Because of significant pain, patient was admitted for pain control and observation. Chart was reviewed and patient evaluated. White blood cell count is going from 10-13. Repeat lab pending today Patient has a plethora of comorbidities. Hospitalist consult will also be obtained to help in managing these. [facility] Past Medical History Medical History Renal calculi Diabetes Elevated cholesterol HTN (hypertension) Family History Family History Father No problems noted. Mother No problems noted. Brother No problems noted. Brother No problems noted. Brother No problems noted. Sister No problems noted. Sister No problems noted. Sister No problems noted. Daughter No problems noted. Surgical History Surgical History H/O colonoscopy H/O right nephrectomy Social History Social History Household Members: None Housing: Apartment Do you presently have visiting nurse or other home services: Yes Alcohol intake: unknown Patient Tobacco Use Status: Former Tobacco user Smoked in Last 30 Days: No Use of substances other than those prescribed or required for medical reasons: No Have you been hit, kicked, punched, or otherwise hurt by someone within the past year? If so, by whom?: No Do you feel safe in your current relationship?: Yes Is there a partner from a previous relationship who is making you feel unsafe now?: No Are you made to feel afraid or neglected: No Faith Healthcare Practices: jewish Advance Directives: No Advance Directives Information Provided: No Do you have a plan to hurt others: No Plan Recently lost weight without trying: No Nutrition Risks: No Nutritional Risk Meds Allergies Allergy/AdvReac Type Severity Reaction Status Date / Time Penicillins Allergy Unknown Unknown Verified 06/16/24 22:28 Active Medications: Current Medications Acetaminophen (Acetaminophen 325 Mg Tablet) 650 mg PO Q6H PRN PRN Reason: Pain, Mild (Pain Scale 1-3), fever or headache Al Hydroxide/Mg Hydroxide (Magnesium Hydrox/Alum Hydrox 30 Ml Oral.Susp) 30 ml PO Q4H PRN PRN Reason: Heartburn Calcium Carbonate (Calcium Carbonate 750 Mg Tab.Chew) 750 mg PO Q4H PRN PRN Reason: Heartburn Hydromorphone HCl (Hydromorphone Hcl 1 Mg/Ml Syringe) 0.5 mg IVPUSH Q4H PRN; Protocol PRN Reason: Pain, Severe (Pain Scale 7-10) Last Admin: 06/17/24 07:38 Dose: 0.5 mg Lactated Ringer's (Lr) 1,000 mls @ 100 mls/hr IVCONT .Q10H [facility] Last Admin: 06/17/24 06:20 Dose: 100 mls/hr Magnesium Hydroxide (Milk Of Magnesia 30 Ml Oral.Susp) 30 ml PO DAILY PRN PRN Reason: Constipation Melatonin (Melatonin 3 Mg Tablet) 6 mg PO BEDTIME PRN PRN Reason: Insomnia Ondansetron HCl (Ondansetron Hcl 4 Mg/2 Ml Vial) 4 mg IVPUSH Q8H PRN PRN Reason: Nausea and Vomiting Last Admin: 06/17/24 07:37 Dose: 4 mg Sodium Chloride (0.9 % Sodium Chloride Flush 3 Ml Syringe) [facility] Last Admin: 06/17/24 07:39 Dose: Not Given Home Medications ?Medication ?Instructions ?Recorded ?Confirmed ?Last Taken ?Type lisinopril 20 mg tablet 20 mg PO DAILY 05/25/21 06/17/24 06/16/24 History verapamil 180 mg 24 hr 180 mg PO DAILY 05/25/21 06/17/24 06/16/24 History capsule,extended release atorvastatin 40 mg tablet 40 mg PO DAILY 06/17/24 06/17/24 06/16/24 History dulaglutide 0.75 mg/0.5 mL 0.75 mg subcut FR@0900 06/17/24 06/17/24 06/15/24 History subcutaneous pen injector (Trulicity) empagliflozin 25 mg-metformin ER 1 tab PO DAILY 06/17/24 06/17/24 06/16/24 History 1,000 mg tablet,extended release 24hr (Synjardy XR) glipizide 10 mg tablet, extended 10 mg PO DAILY 06/17/24 06/17/24 06/16/24 History release 24 hr Physical Exam Vital Signs: Vital Signs: Last Vital Signs Temp 97.8 F 06/17/24 10:05 Pulse 95 06/17/24 10:05 Resp 18 06/17/24 10:05 BP 129/74 06/17/24 10:05 Pulse Ox 96 06/17/24 10:05 O2 Del Method Room Air 06/17/24 10:05 BMI result Body Mass Index 30.1 GI: Other: Abdomen mildly corpulent, soft. Minimal epigastric tenderness. No evidence of any guarding, rebound, or rigidity. Results Results Labs: Short CBC 06/16/24 Range/Units 23:11 WBC 13.4 H (4.8-10.8) X10*3/uL Hgb 13.5 L (14.0-18.0) g/dl Hct 40.5 L (42.0-52.0) % Plt Count 227 (160-400) X10*3/uL BMP 06/16/24 23:11 Sodium 141 Potassium 4.8 Chloride 107 Carbon Dioxide 23 BUN 29 H Creatinine 1.33 Calcium 10.2 Liver Function 06/16/24 Range/Units 23:11 Total Bilirubin 0.5 (0.0-1.0) mg/dL AST 19 (5-37) U/L ALT 25 (0-40) U/L Alkaline Phosphatase 60 (39-117) U/L Albumin 4.4 (3.5-5.0) g/dL Urine 06/17/24 Range/Units 13:09 Urine Color Yellow Urine Appearance Clear Urine pH 6.5 (5.0-9.0) Ur Specific [place] 1.025 (1.005-1.025) Urine Protein Negative (Neg-Trace) mg/dL Urine Glucose (UA) >=1000 H (Negative) mg/dL Assessment and Plan (1) Abdominal pain: Status: Acute Plan Abdominal pain of unclear etiology. Patient is somewhat improving. Current plan is to attempt trial of clear liquids, out of bed, incentive spirometry, repeat a.m. labs. Quality Stroke Does the patient have a stroke diagnosis?: No VTE Prior VTE?: No VTE Risk Level:: Surgical - low VTE Device Contraindication: Treatment Not Indicated VTE Drug Contraindication: Treatment Not Indicated Procedures Date of Service Date of Service: 06/17/24
[2024-06-17 15:01] LABS: MANUAL DIFF FLAG NO
[2024-06-17 15:02] LABS: Basophils Percent Auto 0.3 % (0-2); Eosinophils Absolute Auto 0.1 X10*3/uL (0.0-0.4); Eosinophils Percent Auto 0.9 % (0-4); Hematocrit 42.3 % (42.0-52.0); Hemoglobin 13.8 g/dl (14.0-18.0); Imm Gran Abs Auto 0.09 X10*3/uL (0.00-0.03); Imm Gran Pct Auto 0.6 % (0.0-0.4); Mean Corpuscular HGB Conc 32.6 g/dl (31.0-36.0); Mean Corpuscular Hemoglobin 30.7 pg (27.0-33.0); Mean Platelet Volume 10.1 fL (9.4-12.4); Monocytes Absolute Auto 1.2 X10*3/uL (0.1-1.2); Monocytes Percent Auto 8.8 % (2-11); Neutrophils Absolute Auto 11.6 x10*3/uL (2.0-8.3); Neutrophils Percent Auto 82.4 % (45-73); Platelet Count 231 X10*3/uL (160-400); Red Cell Distribution Width 13.3 % (11.0-16.0); White Blood Count 14.1 X10*3/uL (4.8-10.8)
[2024-06-17 15:48] VITALS: BP 101/62; PULSE 99; RESP 18; TEMP 36.3; O2SAT 97
[2024-06-17 16:34] LABS: Glucose, Whole Blood 103 mg/dL (60-115)
[2024-06-17] MEDS: oxyCODONE HCl Immed Release 5 MG TABLET PO ×2 (19:19→22:51)
[2024-06-17 19:40] VITALS: BP 109/60; PULSE 85; RESP 18; TEMP 36.6
[2024-06-17 20:20] LABS: Glucose, Whole Blood 94 mg/dL (60-115)
[2024-06-18] VITALS: BP 110/62; PULSE 87; RESP 18; TEMP 36.2; O2SAT 97
[2024-06-18] MEDS: Lactated Ringers 1,000 ML 100 ML IVCONT (02:46)
[2024-06-18 06:00] VITALS: BP 110/62; PULSE 87; RESP 18; TEMP 36.2; O2SAT 97
[2024-06-18 07:48] VITALS: BP 122/75; PULSE 75; RESP 14; TEMP 36.4; O2SAT 97
[2024-06-18 07:49] LABS: Glucose, Whole Blood 85 mg/dL (60-115)
--- NOTE | 2024-06-18 08:01 | P.PNIM_ITS ---
Subjective Subjective Date of Service: 06/18/24 Interval History: Seen in follow up for : medical management consult Interval history: NO overnight events Physical Exam 2 Vital Signs: Vital Signs: Last Vital Signs Temp 97.5 F 06/18/24 07:48 Pulse 75 06/18/24 07:48 Resp 14 06/18/24 07:48 BP 122/75 06/18/24 07:48 Pulse Ox 97 06/18/24 07:48 O2 Del Method Room Air 06/18/24 07:48 BMI result Body Mass Index 30.1 Objective Data Active Medications Acetaminophen (Acetaminophen 325 Mg Tablet) 650 mg PO Q6H PRN PRN Reason: Pain, Mild (Pain Scale 1-3), fever or headache Al Hydroxide/Mg Hydroxide (Magnesium Hydrox/Alum Hydrox 30 Ml Oral.Susp) 30 ml PO Q4H PRN PRN Reason: Heartburn Atorvastatin Calcium (Atorvastatin Calcium 40 Mg Tablet) 40 mg PO DAILY ARTIE Calcium Carbonate (Calcium Carbonate 750 Mg Tab.Chew) 750 mg PO Q4H PRN PRN Reason: Heartburn Glucose (Glucose Gel 15 Gm Gel..Gram.) 15 gm PO Q15M PRN; Protocol PRN Reason: per Hypoglycemia Standing Ord. Hydromorphone HCl (Hydromorphone Hcl 1 Mg/Ml Syringe) 0.5 mg IVPUSH Q4H PRN; Protocol PRN Reason: Pain, Severe (Pain Scale 7-10) Last Admin: 06/17/24 07:38 Dose: 0.5 mg Documented By: ELIZABETH Lactated Ringer's (Lr) 1,000 mls @ 100 mls/hr IVCONT .Q10H [facility] Last Admin: 06/18/24 02:46 Dose: 100 mls/hr Documented By: DERRICK Dextrose (D10) 250 mls @ 750 mls/hr IV Q15M PRN; Protocol PRN Reason: per Hypoglycemia Standing Ord. Insulin Human Lispro (Insulin Lispro 100 Unit/Ml 3 Ml Vial) 0 unit SUBCUT QIDACHS [facility]; Protocol Last Admin: 06/18/24 07:51 Dose: Not Given Documented By: HOMERO Non-Admin Reason: No Insulin Coverage Magnesium Hydroxide (Milk Of Magnesia 30 Ml Oral.Susp) 30 ml PO DAILY PRN PRN Reason: Constipation Melatonin (Melatonin 3 Mg Tablet) 6 mg PO BEDTIME PRN PRN Reason: Insomnia Ondansetron HCl (Ondansetron Hcl 4 Mg/2 Ml Vial) 4 mg IVPUSH Q8H PRN PRN Reason: Nausea and Vomiting Last Admin: 06/17/24 07:37 Dose: 4 mg Documented By: ELIZABETH Oxycodone HCl (Oxycodone Hcl Immed Release 5 Mg Tablet) 5 mg PO Q4H PRN PRN Reason: Pain, Moderate(Pain Scale 4-6) Last Admin: 06/17/24 22:51 Dose: 5 mg Documented By: YOLANDA Sodium Chloride (0.9 % Sodium Chloride Flush 3 Ml Syringe) 3 ml IVFLUSH QSHIFT ARTIE Last Admin: 06/18/24 07:51 Dose: Not Given Documented By: HOMERO Non-Admin Reason: IV Running Verapamil HCl (Verapamil Hcl Sr 180 Mg Tablet.Er) 180 mg PO DAILY [facility]; Protocol Labs 06/18/24 08:32 06/18/24 08:32 Labs: Laboratory Results - last 24 hr 06/17/24 06/17/24 06/17/24 08:42 13:09 14:45 MCV 94.0 MCH 30.7 MCHC 32.6 RDW 13.3 Plt Count 231 MPV 10.1 Immature Gran % (Auto) 0.6 H Neut % (Auto) 82.4 H Lymph % (Auto) 7.0 L [place] % (Auto) 8.8 Eos % (Auto) 0.9 Baso % (Auto) 0.3 Lymph # (Auto) 1.0 L [place] # (Auto) 1.2 Eos # (Auto) 0.1 Baso # (Auto) 0.0 Abs Immat Gran (auto) 0.09 H Absolute Neuts (auto) 11.6 H Absolute Nucleated RBC 0.000 Nucleated RBC % (auto) 0.0 POC Glucose 145 H Urine Color Yellow Urine Appearance Clear Urine pH 6.5 Ur Specific [place] 1.025 Urine Protein Negative Urine Glucose (UA) >=1000 H Urine Ketones Negative Urine Blood Negative Urine Nitrite Negative Ur Leukocyte Esterase Small (1+) H Urine RBC 0-2 Urine WBC 11-20 H Ur Squamous Epith Cells 3-5 Urine Bacteria 1+ Hyaline Casts 0-2 06/17/24 06/17/24 06/18/24 16:25 19:43 07:45 MCV MCH MCHC RDW Plt Count MPV Immature Gran % (Auto) Neut % (Auto) Lymph % (Auto) [place] % (Auto) Eos % (Auto) Baso % (Auto) Lymph # (Auto) [place] # (Auto) Eos # (Auto) Baso # (Auto) Abs Immat Gran (auto) Absolute Neuts (auto) Absolute Nucleated RBC Nucleated RBC % (auto) POC Glucose 103 94 85 Urine Color Urine Appearance Urine pH Ur Specific [place] Urine Protein Urine Glucose (UA) Urine Ketones Urine Blood Urine Nitrite Ur Leukocyte Esterase Urine RBC Urine WBC Ur Squamous Epith Cells Urine Bacteria Hyaline Casts Assessment and Plan (1) Partial obstruction of small intestine: Status: Acute Plan 74-year-old Belizean-speaking male with a PMH significant for HLD, HTN, nfo-elerefy-qtfkluotx type 2 diabetes, and renal calculi with right nephrectomy 10 years prior in [place] who presented to the emergency department complaining of severe abdominal pain x1 day. Workup in the ED included CT abd/pelvis which found partial small obstruction and patient was admitted to the hospital under general surgery services with hospitalist consult for medical management. Partial SBO Plan per General Surgery including analgesics Pt without NGT Currently no N/V Non-insulin dependent diabetes Currently on clear liquid diet, advance at the recommendation of general surgery Will cover with sliding scale insulin Hold Trulicity, Synjardy, and glipizide Hx of right nephrectomy Ten years prior in [place] Creatinine slightly elevated at 1.33, up from 1.18 on 06/15/2023 Patient on maintenance fluids HTN Currently normotensive continue verapamil. Resume lisinopril on discharge HLD Continue statin Thank you for allowing me to participate in this consult. Signing off at this time. Please do not hesitate to call for further questions or for any acute medical issues Quality Stroke Does the patient have a stroke diagnosis?: No VTE Prior VTE?: No VTE Risk Level:: Surgical - low VTE Device Contraindication: Treatment Not Indicated VTE Drug Contraindication: Treatment Not Indicated
[2024-06-18 08:33] LABS: MANUAL DIFF FLAG NO
[2024-06-18 08:38] LABS: Basophils Percent Auto 0.2 % (0-2); Eosinophils Absolute Auto 0.4 X10*3/uL (0.0-0.4); Hematocrit 37.5 % (42.0-52.0); Hemoglobin 12.5 g/dl (14.0-18.0); Imm Gran Abs Auto 0.04 X10*3/uL (0.00-0.03); Imm Gran Pct Auto 0.4 % (0.0-0.4); Lymphocytes Absolute Auto 2.1 X10*3/uL (1.2-4.9); Lymphocytes Percent Auto 23.5 % (20-40); Mean Corpuscular HGB Conc 33.3 g/dl (31.0-36.0); Mean Corpuscular Hemoglobin 31.6 pg (27.0-33.0); Mean Corpuscular Volume 94.7 fL (80.0-98.0); Monocytes Absolute Auto 0.9 X10*3/uL (0.1-1.2); Monocytes Percent Auto 10.2 % (2-11); Neutrophils Absolute Auto 5.6 x10*3/uL (2.0-8.3); Neutrophils Percent Auto 61.7 % (45-73); Platelet Count 181 X10*3/uL (160-400); Red Blood Count 3.96 X10*6/uL (4.60-5.80); Red Cell Distribution Width 13.3 % (11.0-16.0)
[2024-06-18 08:48] VITALS: BP 122/78
[2024-06-18] MEDS: Atorvastatin Calcium 40 MG TABLET PO (08:48)
[2024-06-18] MEDS: VerapamiL HCL SR 180 MG TABLET.ER PO (08:48)
--- NOTE | 2024-06-18 08:55 | W.MHC.F2F ---
Service Date Service Date: 06/19/24 Encounter Date of encounter: 06/18/24 Reasons for Services Signs and symptoms assessed: abdominal pain, PO intake, bowel habits Homebound: Leaving the home is medically contraindicated at this time without the asist of a device and/or another person due th the listed conditions above and below. Reason homebound: weakness related to hospital stay Certification: Based on the above findings, I certify that this patient is confined to the home and needs intermittent senior care care, physical therapy and/or speech therapy, or continues to need occupational therapy. The patient is under my care, and I have initiated the establishment of the plan of care. The patient will be followed by a physician who will periodically review the plan of care. Time Spent With Patient Time: Total time managing care of this patient today ____ minutes.
[2024-06-18 08:56] LABS: Anion Gap 11 (12-20); Blood Urea Nitrogen 18 mg/dL (9-16); Calcium 9.2 mg/dL (8.4-10.2); Carbon Dioxide 23 mmol/L (22-29); Chloride 109 mmol/L (96-108); Creatinine Clr Calc Pharmacy 71.3; Estimated Glomerular Filt Rate > 60; Glucose Random 100 mg/dL (60-115); Potassium 4.2 mmol/L (3.3-5.1); Sodium 139 mmol/L (135-145)
[2024-06-18 11:18] LABS: Glucose, Whole Blood 92 mg/dL (60-115)
--- NOTE | 2024-06-18 14:30 | MHC.CM.PN ---
PT CLEARED TO DC HOME TODAY WITH RESUMPTION OF HIS [facility] AND [facility] PROVIDED BY KERLINE ALLEN SPOKE TO PTS KERLINE RN, SHY [phone], SHE SAYS THEY ARRANGE PTS MEDS WEEKLY, BUT OTHERWISE HE TAKES THEM ON HIS OWN PT ALSO HAS DAILY [facility] SHY IS AWARE OF PENDING DC AND ASKS THAT DCS BE FAXED TO HER AT : [phone]
[2024-06-18] MEDS: oxyCODONE HCl Immed Release 5 MG TABLET PO ×2 (14:58→18:40)
--- NOTE | 2024-06-18 14:59 | P.DS_ITS ---
DS: Providers Provider Date of Service: 06/18/24 Date of admission: 06/17/24 05:03 Date of discharge: 06/18/24 Primary care physician: Toma Lund MD Attending physician on admission: Andres Ny Consults: 06/17/24 10:48 Consult to Hospitalist Routine Comment: Consulting Provider: Hospitalist Reason For Exam: meds from home,Diabetes Attending physician on discharge: Andres Ny DS: Diagnosis Discharge Diagnosis (1) Partial obstruction of small intestine: Status: Acute DS: Summary Hospital Course Hospital Course: HPI AT ADMISSION: Indra Malcolm is a 74 year old male presents here with 1 day history of epigastric and lower abdominal pain. He has never had this before. Otherwise tolerating a diet. Has regular bowel habits. He states he is passing flatus. Discomfort is more epigastric today. Patient denies any sick contacts, no unusual diet, no new meds, no recent foreign travel. Workup including CT scan really demonstrated no acute surgical findings. Chart was reviewed and patient evaluated. He has a surgical history significant for a nephrectomy. He had a leukocytosis of labs. HOSPITAL COURSE: Because of significant pain, patient was admitted to the surgical service for pain control and observation for the abdominal pain of unclear etiology. He felt improved and had a benign abd exam. He was started on clear liquids. The following day he felt improved and had no abdominal pain. He was passing flatus and had a BM. His WBC count normalized. He was advanced to solid diet. He was evaluated later in the day and was tolerating a solid diet without any abdominal symptoms. His abdomen was soft and nontender. He was hemodynamically stable. He felt improved and ready for discharge. He was discharged to home on 06/18/24 with resumption of his home services. He is to follow up with his PCP. Time Attestation Discharge Coordination Time (in mins): 30 Quality: Safe Use of Opioids Does Pt have an Active Cancer Diagnosis on the Problem List?: No Quality: Stroke Does the patient have a stroke diagnosis?: No Physical Exam Vital Signs: Vital Signs: Last Vital Signs Temp 97.7 F 06/18/24 18:00 Pulse 77 06/18/24 18:00 Resp 12 06/18/24 18:00 BP 120/64 06/18/24 18:00 Pulse Ox 96 06/18/24 18:00 O2 Del Method Room Air 06/18/24 18:00 BMI result Body Mass Index 30.1 Const: General: comfortable, no acute distress and alert Resp: Effort & Inspection: normal respiratory effort GI: Inspection: No distended Palpation (GI): Soft to palpation and nontender Skin: General skin exam: no rashes or lesions noted Discharge Plan Discharge Anticipated Discharge Date/Time: 06/18/24 13:57 Patient Disposition: Home Health Service Discharge Diagnosis: abd pain, PSBO Referrals: [facility] [Other] - 1 Week (RESUME PREVIOUS SERVICES ) Toma Lozano MD [Primary Care Provider] - 1 Week Discharge Medications: Continued atorvastatin 40 mg tablet 40 mg PO DAILY glipizide 10 mg tablet extended release 24hr 10 mg PO DAILY Trulicity 0.75 mg/0.5 mL pen injector 0.75 mg subcut FR@0900 Synjardy XR 25-1,000 mg tablet, IR - ER, biphasic 24hr 1 tab PO DAILY lisinopril 20 mg tablet 20 mg PO DAILY verapamil 180 mg capsule,ext rel. pellets 24 hr 180 mg PO DAILY Rx Instructions: with food Discharge Orders: Discharge Order (Routine); Ordered 06/18/24 Ordered By: Aleena Thacker Diet: Advance to usual diet Activity on Discharge: As tolerated Stand Alone Forms: Patient Portal Discharge page Print Language: Kiswahili Activity Restrictions/Additional Instructions: Follow up with your PCP. Call Your Doctor If: ? ? -Your temperature exceeds 101.5? F? ? ? -You experience excessive pain or swelling ? ? -You have an unexpected reaction to medication ? ? -You experience continued vomiting/nausea Care Plan Goals: Return to baseline health and resume normal activities. Health Concerns: PSBO Plan of Treatment: resolved with nonoperative measures f/u with PCP Assessment: Improved Discharge Date/Time: 06/18/24 18:40
[2024-06-18 15:30] VITALS: BP 120/64; PULSE 77; RESP 12; TEMP 36.5; O2SAT 96
[2024-06-18 16:30] LABS: Glucose, Whole Blood 92 mg/dL (60-115)
[2024-06-18 18:00] VITALS: BP 120/64; PULSE 77; RESP 12; TEMP 36.5; O2SAT 96
== END 2024-06-18 18:40 | disposition home health service (06) | DRG 390 ==
LOC: HO.ED 06-17 02:00 → HO.EDOVER 06-17 05:11 → HO.S3 06-17 08:02
PROVIDERS: Physician Assistant; Admitting Provider Surgery; Emergency Provider Emergency Medicine Emergency Medical Services; PCP Internal Medicine; Visit Provider Surgery
DX: K56.600 Partial intestinal obstruction, unspecified as to cause (principal); I10 Essential (primary) hypertension; E11.9 Type 2 diabetes mellitus without complications; E78.5 Hyperlipidemia, unspecified; Z90.5 Acquired absence of kidney; Z87.891 Personal history of nicotine dependence; Z79.84 Long term (current) use of oral hypoglycemic drugs; Z79.85 Long-term (current) use of injectable non-insulin antidiabetic drugs; Z79.899 Other long term (current) drug therapy
CPT/HCPCS: 36415; 74177; 80048; 80053; 81001; 82947; 83690; 84484; 85025; 85027; 87086; 93005; 99285; J1170; J2270; J2405; J7120; Q9967

== ENCOUNTER → 2024-06-17 05:03 | Outpatient (BNV) | payer MEDICARE, MEDICAID, SELFPAY | PROVIDERS: Admitting Provider Surgery; Emergency Provider Emergency Medicine Emergency Medical Services; Visit Provider Student in an Organized Health Care Education/Training Program | DX: K56.600 Partial intestinal obstruction, unspecified as to cause (principal) | CPT/HCPCS: 99222; 99232 ==

== ENCOUNTER → 2024-06-17 05:03 | Outpatient (BNV) | payer MEDICARE, MEDICAID, SELFPAY | PROVIDERS: Admitting Provider Surgery; Emergency Provider Emergency Medicine Emergency Medical Services; Visit Provider Surgery | DX: K56.600 Partial intestinal obstruction, unspecified as to cause (principal) | CPT/HCPCS: 99222; 99238; G0180 ==

== ENCOUNTER 2024-06-19 10:32 | Outpatient (REF) | payer MEDICARE, MEDICAID, SELFPAY ==
[2024-06-19 11:49] LABS: Alanine Aminotransferase 22 U/L (0-40); Albumin Level 4.4 g/dL (3.5-5.0); Alkaline Phosphatase 57 U/L (39-117); Anion Gap 13 (12-20); Aspartate Amino Transferase 23 U/L (5-37); Bilirubin Total 0.5 mg/dL (0.0-1.0); Blood Urea Nitrogen 21 mg/dL (9-16); Calcium 9.9 mg/dL (8.4-10.2); Carbon Dioxide 25 mmol/L (22-29); Chloride 105 mmol/L (96-108); Cholesterol 116 mg/dL (<200); Estimated Glomerular Filt Rate > 60; Glucose Random 103 mg/dL (60-115); HDL Cholesterol 45 mg/dL (>40); LDL Cholesterol Calculated 56 mg/dL (<100); Potassium 4.1 mmol/L (3.3-5.1); Sodium 139 mmol/L (135-145); Total Protein 7.5 g/dL (6.5-8.0); Triglycerides 75 mg/dL (<150)
[2024-06-19 13:57] LABS: Reflex LDLD? No
== END 2024-06-19 10:33 | disposition home or self-care (01) ==
LOC: HO.HHCL 10:32
PROVIDERS: Visit Provider Internal Medicine
DX: Z00.00 Encounter for general adult medical examination without abnormal findings (principal)
CPT/HCPCS: 36415; 80053; 80061

== ENCOUNTER 2024-06-22 10:05 | Outpatient (REF) | payer MEDICARE, MEDICAID, SELFPAY ==
[2024-06-22 11:10] LABS: MANUAL DIFF FLAG NO
[2024-06-22 11:20] LABS: Basophils Absolute Auto 0.1 X10*3/uL (0.0-0.2); Basophils Percent Auto 0.8 % (0-2); Eosinophils Absolute Auto 0.3 X10*3/uL (0.0-0.4); Eosinophils Percent Auto 4.5 % (0-4); Hematocrit 38.5 % (42.0-52.0); Hemoglobin 12.6 g/dl (14.0-18.0); Imm Gran Abs Auto 0.05 X10*3/uL (0.00-0.03); Imm Gran Pct Auto 0.7 % (0.0-0.4); Lymphocytes Percent Auto 27.9 % (20-40); Mean Corpuscular HGB Conc 32.7 g/dl (31.0-36.0); Mean Corpuscular Hemoglobin 31.1 pg (27.0-33.0); Mean Corpuscular Volume 95.1 fL (80.0-98.0); Mean Platelet Volume 10.6 fL (9.4-12.4); Monocytes Absolute Auto 0.6 X10*3/uL (0.1-1.2); Monocytes Percent Auto 8.9 % (2-11); Neutrophils Absolute Auto 4.1 x10*3/uL (2.0-8.3); Neutrophils Percent Auto 57.2 % (45-73); Platelet Count 223 X10*3/uL (160-400); Red Blood Count 4.05 X10*6/uL (4.60-5.80); Red Cell Distribution Width 13.2 % (11.0-16.0); White Blood Count 7.2 X10*3/uL (4.8-10.8)
[2024-06-22 12:16] LABS: Creatinine Urine 69.81 mg/dL; Microalbum/Creatinine Ratio Ur 21.4 ug/mg cr (<30)
[2024-06-22 12:17] LABS: Vitamin B12 851 pg/mL (200-900)
== END 2024-06-22 10:06 | disposition home or self-care (01) ==
LOC: HO.HHCL 10:05
PROVIDERS: Visit Provider Internal Medicine
DX: E11.65 Type 2 diabetes mellitus with hyperglycemia (principal)
CPT/HCPCS: 36415; 82043; 82570; 82607; 85025

== ENCOUNTER 2024-07-10 13:03 | Outpatient (REF) | payer MEDICARE, MEDICAID, SELFPAY ==
--- NOTE | 2024-07-10 14:15 | MHC.AU.HA2 ---
Hearing Instrument Fitting- Adult- Binaural Date of Visit: 07/10/24 Hearing Instruments Dispensed: Right Ear: Aston, Model, Color, Serial Number: Nannette Sun L70-R SN: [id number] Color: Silver Duffy Alum Mixer Repair Warranty: 07/18/2027 Alum Mixer Loss and Damage Warranty: 07/18/2027 [facility] Service Plan: 07/10/2025 Battery Size: Rechargeable Broommaker/Slim Tube: 3P Earmold/Dome/CShell/SlimTip: SlimTip with canal lock SN: [id number] Sherine: 10/16/2025 Type of Wax Guard: Cerustop Left Ear: Aston, Model, Color, Serial Number: Nannette Sun L70-R SN: [id number] Color: Silver Duffy Alum Mixer Repair Warranty: 07/18/2027 Alum Mixer Loss and Damage Warranty: 07/18/2027 [facility] Service Plan: 07/10/2025 Battery Size: Rechargeable Broommaker/Slim Tube: 3P Earmold/Dome/CShell/SlimTip: SlimTip with canal lock SN: [id number] Sherine: 10/16/2024 Type of Wax Guard: Cerustop Accessories/Assistive Technology: Steamship Agent Ease SN: [id number] Summary of Fitting: Accompanied by immigration case manager, Kelly. Ran feedback analyzer and real ear measures. Comfortable at real ear settings, noted improvement in sound quality compared to old hearing aids. Reviewed care, use, and rechargeability including manually turning on/off, cleaning, changing wax guards. As a long-time hearing aid user, Indra was familiar with general maintenance and everyday use. No interest in bluetooth. Indra did not feel a follow up was necessary at this time. He will call if any issues arise. Recommendations: Patient does not feel follow-up is necessary at this time. Diagnosis Code(s): Primary Diagnosis: H90.3 Bilateral Sensorineural Hearing Loss Signature: Provider: Saji Black, [facility]
== END 2024-07-10 13:04 | disposition home or self-care (01) ==
LOC: HO.HAP 13:03
PROVIDERS: Visit Provider Internal Medicine
DX: Z46.1 Encounter for fitting and adjustment of hearing aid (principal); H90.3 Sensorineural hearing loss, bilateral
CPT/HCPCS: V5011; V5020; V5160; V5261; V5264

== ENCOUNTER 2024-09-26 10:48 | Outpatient (REF) | payer MEDICARE, MEDICAID, SELFPAY ==
[2024-09-26 13:51] LABS: Prostate Specific Antigen 2.22 ng/mL (<0.05-4.0)
[2024-09-27 04:45] LABS: HBS Num1 0.27 mIU/mL (0-7.99); HBc Num1 0.14 S/CO (0.00-0.79); HBsAGNum1 0.35 S/CO (0.00-0.99); HIV AB/AG Nonreactive (Nonreactive); HIV Num 1 0.06 S/CO (0.00-0.99); Hepatitis B Core Antibody Nonreactive (Nonreactive); Hepatitis B Surface Antigen Negative (Negative); ~HepC Num1 0.09 S/CO (0.00-0.79); ~Hepatitis B Surface Antibody NONREACTIVE (Nonreactive); ~Hepatitis C Antibody Nonreactive (Nonreactive)
== END 2024-09-26 10:49 | disposition home or self-care (01) ==
LOC: HO.HHCL 10:48
PROVIDERS: Visit Provider Family Medicine
DX: Z11.3 Encounter for screening for infections with a predominantly sexual mode of transmission (principal); Z12.5 Encounter for screening for malignant neoplasm of prostate
CPT/HCPCS: 36415; 84153; 86704; 86706; 86803; 87340; 87389

== ENCOUNTER 2024-10-09 11:12 | Outpatient (REF) | payer MEDICARE, MEDICAID, SELFPAY | END 2024-10-09 11:13 | disposition home or self-care (01) | LOC: HO.HAP 11:12 | PROVIDERS: Visit Provider Internal Medicine | DX: Z13.89 Encounter for screening for other disorder (principal) ==

== ENCOUNTER 2024-10-16 08:56 | Outpatient (REF) | payer MEDICARE, MEDICAID, SELFPAY | END 2024-10-16 08:57 | disposition home or self-care (01) | LOC: HO.US 08:56 | PROVIDERS: PCP Internal Medicine; Visit Provider Family Medicine | DX: Z13.6 Encounter for screening for cardiovascular disorders (principal) | CPT/HCPCS: 76775 ==

== ENCOUNTER 2024-11-15 10:22 | Outpatient (REF) | payer MEDICARE, MEDICAID, SELFPAY ==
--- NOTE | 2024-11-15 11:03 | MHC.AU.HA3 ---
Hearing Instrument Follow-Up- Binaural Date of Visit: 11/15/24 Right Ear: Make, Model, Color, Serial Number: Nannette Sun L70-R SN: [id number] Color: Silver Duffy Personal Lines Advisor Repair Warranty: 07/18/2027 Personal Lines Advisor Loss and Damage Warranty: 07/18/2027 [facility] Service Plan: 07/10/2025 Battery Size: Rechargeable Ice Cream Truck Driver/Slim Tube: 3P Earmold/Dome/CShell/SlimTip:SlimTip with canal lock SN: [id number] Sherine: 10/16/2025 Type of Wax Guard: Cerustop Dispensed By: [facility] Date of Fittin11/02/2018 Left Ear: Make, Model, Color, Serial Number: Nannette Sun L70-R SN: [id number] Color: Silver Duffy Personal Lines Advisor Repair Warranty: 07/18/2027 Personal Lines Advisor Loss and Damage Warranty: 07/18/2027 [facility] Service Plan: 07/10/2025 Battery Size: Rechargeable Ice Cream Truck Driver/Slim Tube: 3P Earmold/Dome/CShell/SlimTip: SlimTip with canal lock SN: [id number] Sherine: 10/16/2024 Type of Wax Guard: Cerustop Dispensed By: [facility] Date of Fittin11/02/2018 Follow-Up Summary: Seen for hearing aid adjustment. Accompanied by JEFFREY Mcnally. Previously seen 10/09 but hearing aids were not charged at that time. Ran feedback manager meeting. Decreased overall gain to 80% which Indra found acceptable. Set automatic gain increase. Advised to wear hearing aids consistently for 3-4 weeks and return if feeling that further adjustment is needed at that time. Recommendations: Recommendations: Hearing instrument follow-up or maintenance as needed. Diagnosis Code(s): Primary Diagnosis: H90.3 Bilateral Sensorineural Hearing Loss Signature: Provider: Saji Killian, [facility]
== END 2024-11-15 10:23 | disposition home or self-care (01) ==
LOC: HO.HAP 10:22
PROVIDERS: Visit Provider Internal Medicine
DX: Z13.89 Encounter for screening for other disorder (principal)

== ENCOUNTER 2025-01-03 12:30 | Outpatient (AMB) | payer MEDICARE, MEDICAID, SELFPAY ==
--- NOTE | 2025-01-03 12:33 | A.OFFVIS_ITS ---
Vital Signs 01/03/25 12:36 Height 5 ft 9 in Weight 191 lb 12.835 oz BMI 28.3 BP 130/73 Blood Pressure Location Lt brachial Position Sitting Pulse 76 Pulse Oximetry (%) 98 Intake Visit Reasons: Constipation Intake Note: Indra presents in the office as a new patient for constipation. CC: He states that he does not have constipation at this time - he was given a pill to go to the bathroom and he is okay now. make up worker suggests that it was a stool softener but she does not have it in the chart. PCP Note says Colace - patient refuses to do the cologuard and he is due for a colonoscopy. Automobile Service Station Manager Required: Yes Allergies Penicillins Allergy (Unknown, Verified 06/16/24 22:28) Unknown HPI HPI Constipation: Details: 74-year-old male with past medical history of diabetes, hypertension, hyperlipidemia, history of small-bowel obstruction, constipation is here today for initial consultation. patient has been constipated for several months, last May patient was seen in the ED for abdominal pain. CT scan done and possible partial small bowel obstruction seen. Patient was admitted, NPO, consult with surgery. Colon, scattered diverticuli seen without obstruction. Surgery was not performed. Today patient reports that he no longer has abdominal pain. Moves his bowels daily. Does reports to have abdominal bloating. Not sure if he feels like he empties his bowels completely. Currently is only on stool softeners. Admits that he is not drinking enough water. Spoke with staff that came with patient as well as phone discussion with dependency case manager and airport skilled maintenance supervisor. Patient had colonoscopy in 2019 that was normal and recommendation was made for patient to return in 10 years. Patient denies any melena, hematochezia. Denies any diarrhea or mucus in his stools. [facility] Medical History (Updated 01/03/25 @ 17:26 by Nicki Blanco [facility]) Diverticulosis Renal calculi Diabetes Elevated cholesterol HTN (hypertension) Surgical History H/O colonoscopy H/O right nephrectomy Family History Father No problems noted. Mother No problems noted. Brother No problems noted. Brother No problems noted. Brother No problems noted. Sister No problems noted. Sister No problems noted. Sister No problems noted. Daughter No problems noted. Social History Household Members: None Housing: Apartment Do you presently have visiting nurse or other home services: Yes Alcohol intake: unknown Patient Tobacco Use Status: Former Tobacco user Review of Systems Const Denies weight gain and Denies weight loss ENT Reports no additional complaints, Denies dysphagia and Denies odynophagia Card Reports no additional complaints Resp Reports no additional complaints GI Denies abdominal pain, Denies belching, Denies melena, Reports bloating ( occasional), Denies change in bowel habits, Denies dysphagia, Denies excessive flatus, Denies dyspepsia, Denies heartburn, Denies diarrhea, Denies loose stools, Denies nausea, Denies odynophagia and Denies vomiting Reports no additional complaints Musc Reports no additional complaints Neuro Reports no additional complaints Psych Reports no additional complaints Endo Reports no additional complaints Physical Exam Vital Signs: Last Vital Signs Pulse 76 01/03/25 12:36 BP 130/73 01/03/25 12:36 Pulse Ox 98 01/03/25 12:36 BMI result Body Mass Index 28.3 Const General: healthy appearing, no acute distress and well developed Nutritional Appearance: well nourished Orientation/consciousness: patient oriented x3 Resp Effort & Inspection: normal respiratory effort, able to speak in complete sentences, no tracheal deviation and symmetric chest movement Auscultation: clear to auscultation bilaterally Cardio Rate: regular rate GI Inspection: Yes normal to inspection and No distended Palpation (GI): Soft to palpation, not firm, nontender and No hepatosplenomegaly present Auscultation: normal bowel sounds General: Yes no CVA tenderness Back/Spine/Pelvis Back: no CVA tenderness Skin General skin exam: elasticity normal, turgor normal and dry skin Neuro General: patient oriented x3 Psych Appearance: grossly normal Mental Status: mental status grossly normal Results Reviewed Results Reviewed: CT SCAN OF ABDOMEN AND PELVIS 06/17/2024 Partial small bowel obstruction involving the proximal jejunum with a probable transition point in the distal jejunum/proximal ileum in the lower left hemiabdomen. 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 Assessment & Plan Assessment & Plan (1) Constipation: Code(s): K59.00 - Constipation, unspecified Qualifiers: Constipation type: slow transit constipation Qualified Code(s): K59.01 - Slow transit constipation (2) Diverticulosis: Code(s): K57.90 - Diverticulosis of intestine, part unspecified, without perforation or abscess without bleeding Category: Medical Plan Negative exam today. Patient denies any abdominal pain or discomfort. Patient will continue taking stool softener and we will add senna. Patient is not due for colonoscopy till 2028. Patient denies any melena, hematochezia, unintentional weight loss or ribbon like stools. Patient had partial small- bowel obstruction that cleared on its own without on requiring any surgery when admitted last year in May. Continue good bowel regimen for now. Follow-up in 3 months. Patient and staff are agreeable to plan of care and verbalizes understanding of instructions. They were given the opportunity to ask questions and all questions answered. Thank you for allowing me to participate in his care Medications: New docusate sodium 100 mg PO BEDTIME 90 caps 3RF K59.00 - Constipation, unspecified sennosides (Natural Senna Laxative) 8.6 mg PO BEDTIME 90 tabs 3RF constipation K59.00 - Constipation, unspecified Coding Level of Care Code New Pt Level 3 (93689) Diagnoses Slow transit constipation K59.01 Constipation type: slow transit constipation Diverticulosis K57.90 Time Spent (min) 40 Comment 30 minutes spent with patient and additional 10 minutes spent reviewing his records
[2025-01-03 12:36] VITALS: BP 130/73; PULSE 76; O2SAT 98; BMI 28.3
--- OUTSIDE RECORDS SUMMARY | 2025-01-03 15:48 | XMS_ITS | Encounter Summary ---
Author Organization [employer] Address [address] [place] [address] Care Team Providers Care Piano Instructor Name Role Phone Toma Lozano MD Primary Care Provide r Reason for Visit * Reason Onset Date Comments Call Back Request 06/28/2024 Encounter Details Date Type Department Care Team ([facility] st Contact Info) Description 06/28/2024 Telephone [facility] MEDICINE [address] [place], [place] [phone] Toma Lozano MD [address] [place] [address] Call Back Request Social History Tobacco Use Types Packs/Day Years Used Date Smoking Tobacco: Never Passive Smoke Exposure: Never Smokeless Tobacco: Never Alcohol Use Standard Drinks/Week Comments Never 0 (1 standard drink = 0.6 oz pur e alcohol) Depression Answer Date Recorded Patient Health Questionnaire-9 Score 2 04/19/2024 Patient Health Questionnaire-9 Score 2 04/19/2024 Last PHQ-9: Questionnaire Data Not on file 0 04/19/2024 Housing Stability Answer Date Recorded What is your housing situation today? I have kip sing 05/31/[address] you li ve. Do you have problems with any of the following? None of the above 05/31/2024 Food Insecurity Answer Date Recorded Within the past 12 months, y ou worried that your food would run out before you got money to buy more: Never True 05/31/2024 Within the past 12 months,th e food you bought just didn't last and you didn't have enough money to get more: Never True 05/2024 Transportation Answer Date Recorded In the past 12 months, has l ack of transportation kept you from medical appts, meetings, work or from getting things needed for daily living? No 05/31/2024 Utilities Answer Date Recorded In the past 12 months, has t he electric, gas, oil or water company threatened to shut off services in your home? No 05/31/2024 Depression Answer Date Recorded Patient Health Questionnaire-2 Score 1 04/19/2024 Internet Access Answer Date Recorded Internet Access Q1 Yes 06/22/2024 Internet Access Q2 Not on file 06/22/2024 Sex and Gender Information Value Date Recorded Sex Assigned at Male 08/23/2022 10:34 AM EDT Legal Sex Male 10:34 AM EDT Gender Identity Choose not to disclose 10:34 AM EDT Sexual Orientation Choose not to disclose 2021 10:34 AM EDT documented as of this encounter Miscellaneous Notes * Telephone Encounter - Clary Martinez RN - 06/28/2024 12:34 PM EDT TC returned to VNA RN, she reports pt. Received a call yesterday in regards to discontinuing meds however advised VNA RN last call from us was Tuesday in regards to lab results for anemia, no meds discussed. She verbalizes understanding. Otherwise, VNA RN reports pt. Has self discontinued Trulicity (last used 2 weeks ago) due to feeling it caused SBO. STEPHANIEA RN reports he continues on other oral DM and he self monitors blood sugar but she checks his monitor with every visit, so far she reports no change in blood sugars but will call clinic if she notes significant increase in blood sugar going forward while pt. If off the Trulicity. FYI * Telephone Encounter - Edd Correia - 06/28/2024 11:13 AM EDT Holger from [facility] was told by patient had received a call by a nurse in regards to med changes and discontinued meds and would like a call before seeing this patient please call [phone] documented in this encounter Plan of Treatment Upcoming Encounters Date Type Department Care Team (Late st Contact Info) Description 01/23/2025 10:00 AM EDT Office Visit [facility] OPTOMETRY [address] [place] [address] Natalie Jorgensen, OD [address] [place] [address] documented as of this encounter Goals Goal Patient Goal Type Associated Problems Recent Progress Patient-Stated? Author Blood Pressure < 140/90 Blood Pressure 127/75(2024 9:21 AM EST) No Piers-Gambl e, Ria, PharmD Hemoglobin A1c < 8 Result Component 6.8( 1:52 PM EST) No Piers-Gambl e, Ria, PharmD documented as of this encounter Visit Diagnoses Not on filedocumented in this encounter Additional Health Concerns Assessment Noted Time PHQ-9 Depression Total Score: 2 04/19/20 24 11:10 AM EDT documented as of this encounter Care Teams Piano Instructor Relationship Specialty Start Date End Date Toma Lozano MD [address] [place] [address] PCP - General Family Medicine 08/10/18 [facility] 04/21/24 documented as of this encounter
--- OUTSIDE RECORDS SUMMARY | 2025-01-03 15:48 | XMS_ITS | Encounter Summary ---
Author Organization [employer] Address [address] [place] [address] Care Team Providers Care Obiee Consultant Name Role Phone Toma Lozano MD Primary Care Provide r Reason for Visit * Reason Comments Med Refill Encounter Details Date Type Department Care Team ([facility] st Contact Info) Description 12/31/2024 Refill [facility] MED & PEDS [address] [place], [place] [phone] [facility] [address] [facility] [facility] [place] [address] Dyslipidemia Social History Tobacco Use Types Packs/Day Years Used Date Smoking Tobacco: Former Cigarettes Q uit: 09/25/2014 Passive Smoke Exposure: Never Smokeless Tobacco: Never Comments:Only smoked once i n a while when I was drinking a beer, I would smoke . 2-3 cigarettes in a week. Started smoking approximately at 20 years old. Alcohol Use Standard Drinks/Week Comments Not Currently 2 (1 standard drink = 0.6 oz pure alcohol) Started drinking alchohol roughly at 20 years old. Stopped drinking approx 10 years ago. Depression Answer Date Recorded Patient Health Questionnaire-9 Score 3 09/26/2024 Patient Health Questionnaire-9 Score 3 09/26/2024 Last PHQ-9: Questionnaire Data Not on file 1 11/27/2023 Housing Stability Answer Date Recorded What is your housing situation today? I have kip lópez 05/31/[address] you li [...] the past 12 months, has t he [employer], gas, oil or water charity: water threatened to shut off services in your home? No 05/31/2024 Depression Answer Date Recorded Patient Health Questionnaire-2 Score 0 09/26/2024 Internet Access Answer Date Recorded Internet Access Q1 Yes 06/22/2024 Internet Access Q2 Not on file 06/22/2024 Sex and Gender Information Value Date Recorded Sex Assigned at Male 08/23/2022 10:34 AM EDT Legal Sex Male 10:34 AM EDT Gender Identity Choose not to disclose 10:34 AM EDT Sexual Orientation Choose not to disclose 2021 10:34 AM EDT documented as of this encounter Plan of Treatment Upcoming Encounters Date Type Department Care Team (Late st Contact Info) Description 01/23/2025 10:00 AM EDT Office Visit [facility] OPTOMETRY [address] [place] [address] Jameel, Natalie, OD [address] [place] [address] documented as of this encounter Goals Goal Patient Goal Type Associated Problems Recent Progress Patient-Stated? Author Blood Pressure < 140/90 Blood Pressure 127/75(2024 9:21 AM EST) No Piers-Gambl e, Ria, PharmD Hemoglobin A1c < 8 Result Component 6.8( 1:52 PM EST) No Piers-Gambl e, Ria, PharmD documented as of this encounter Visit Diagnoses Diagnosis Dyslipidemia Other and unspecified hyperlipidemia documented in this encounter Additional Health Concerns Assessment Noted Time PHQ-9 Depression Total Score: 3 09/26/20 24 9:45 AM EST documented as of this encounter Care Teams Obiee Consultant Relationship Specialty Start Date End Date Toma Lozano MD [address] [place] [address] PCP - General Family Medicine 08/10/18 [facility] 04/21/24 documented as of this encounter
--- OUTSIDE RECORDS SUMMARY | 2025-01-03 15:48 | XMS_ITS | Encounter Summary ---
Author Organization [facility] Address [address] [place] [address] Care Team Providers Care Manual Control Auger Press Operator Name Role Phone Toma Lozano MD Primary Care Provide r Encounter Details Date Type Department Care Team ([facility] Contact Info) Description 04/18/[address] [facility] ADULT DENTAL [address] [place] [address] Eloy Burris DDS [address] [place] [address] Social History Tobacco Use Types Packs/Day Years Used Date Smoking Tobacco: Never Passive Smoke Exposure: Never Smokeless Tobacco: Never Alcohol Use Standard Drinks/Week Comments Never 0 (1 standard drink = 0.6 oz pur e alcohol) Depression Answer Date Recorded Patient Health Questionnaire-9 Score 0 02/15/2023 Depression Answer Date Recorded Patient Health Questionnaire-2 Score 0 02/15/2023 Sex and Gender Information Value Date Recorded Sex Assigned at Male 08/23/2022 10:34 AM EDT Legal Sex Male 10:34 AM EDT Gender Identity Choose not to disclose 10:34 AM EDT Sexual Orientation Choose not to disclose 2021 10:34 AM EDT COVID-19 Exposure Response Date Recorded In the last 10 days, have yo u been in contact with someone who was confirmed or suspected to have Coronavirus/COVID-19? No / Unsure 04/15/2023 10:19 AM EDT documented as of this encounter Plan of Treatment Upcoming Encounters Date Type Department Care Team (Late Contact Info) Description 01/23/2025 10:00 AM EDT Office Visit [facility] OPTOMETRY [address] [place], [place] [phone] Natalie Jorgensen, OD [address] [place], [place] [phone] documented as of this encounter Visit Diagnoses Not on filedocumented in this encounter Additional Health Concerns Assessment Noted Time PHQ-9 Depression Total Score: 0 02/16/20 23 11:37 AM EDT documented as of this encounter Care Teams Manual Control Auger Press Operator Relationship Specialty Start Date End Date Toma Lozano MD [address] [place], [place] [phone] PCP - General Family Medicine 08/10/18 [facility] 04/21/24 documented as of this encounter
--- OUTSIDE RECORDS SUMMARY | 2025-01-03 15:48 | XMS_ITS | Encounter Summary ---
Author Organization [employer] Address [address] [place] [address] Care Team Providers Care Floor Specialist Name Role Phone Toma Lozano MD Primary Care Provide r Encounter Details Date Type Department Care Team (Late Contact Info) Description 03/18/2023 Orders Only [facility] [address] [place], [place] [phone] Emerald Carvajal LPN Social History Tobacco Use Types Packs/Day Years [...] suspected to have Coronavirus/COVID-19? No / Unsure 03/07/2023 8:33 AM EDT documented as of this encounter Plan of Treatment Upcoming Encounters Date Type Department Care Team (Late Contact Info) Description 01/23/2025 10:00 AM EDT Office Visit [facility] [address] [place] [address] Natalie Jorgensen, OD [address] [place] [address] documented as of this encounter Visit Diagnoses Not on filedocumented in this encounter Additional Health Concerns Assessment Noted Time PHQ-9 Depression Total Score: 0 02/16/20 23 11:37 AM EDT documented as of this encounter Care Teams Floor Specialist Relationship Specialty Start Date End Date Toma Lozano MD [address] [place] [address] PCP - General Family Medicine 08/10/18 [facility] 04/21/24 documented as of this encounter
--- OUTSIDE RECORDS SUMMARY | 2025-01-03 15:48 | XMS_ITS | Encounter Summary ---
Author Organization [employer] Address [address] [facility] 7t [place] [address] Care Team Providers Care Java Front End Web Developer Name Role Phone Toma Lozano MD Primary Care Provide r Encounter Details Date Type Department Care Team (Late Contact Info) Description 06/08/2023 Telephone [facility] [address] [place] [address] Toma Lozano MD [address] [place] [address] Social History Tobacco Use Types Packs/Day Years [...] Description 01/23/2025 10:00 AM EDT Office Visit [facility] [address] [place] [address] JameelNatalie barros, OD [address] [place] [address] documented as of this encounter Goals Goal Patient Goal Type Associated Problems Recent Progress Patient-Stated? Author Blood Pressure < 140/90 Blood Pressure 127/75(2024 9:21 AM EST) No Ria Smith, PharmD Hemoglobin A1c < 8 Result Component 6.8( 1:52 PM EST) No Ria Smith PharmD documented as of this encounter Visit Diagnoses Not on filedocumented in this encounter Additional Health Concerns Assessment Noted Time PHQ-9 Depression Total Score: 0 02/16/20 23 11:37 AM EDT documented as of this encounter Care Teams Java Front End Web Developer Relationship Specialty Start Date End Date Toma Lozano MD [address] [place] [address] PCP - General Family Medicine 08/10/18 [facility] 04/21/24 documented as of this encounter
--- OUTSIDE RECORDS SUMMARY | 2025-01-03 15:48 | XMS_ITS | Encounter Summary ---
Author Organization [employer] Address [address] [facility] [address] [place] [address] Care Team Providers Care Submersible Pilot Name Role Phone Toma Lozano MD Primary Care Provide r Reason for Visit * Reason Onset Date Comments Error 04/10/2024 Encounter Details Date Type Department Care Team ([facility] st Contact Info) Description 04/10/[address] [facility] [address] [place], [place] [phone] Toma Lozano MD [address] [place], [place] [phone] Error Social History Tobacco Use Types Packs/Day Years Used Date Smoking Tobacco: Never Passive Smoke Exposure: Never Smokeless Tobacco: Never Alcohol Use Standard Drinks/Week Comments Never 0 (1 standard drink = 0.6 oz pur e alcohol) Depression Answer Date Recorded Patient Health Questionnaire-9 Score 0 02/15/2023 Housing Stability Answer Date Recorded What is your housing situation today? I have kip lópez 08/22/[address] you li ve. Do you have problems with any of the following? None of the above 08/22/2023 Food Insecurity Answer Date Recorded Within the past 12 months, y ou worried that your food would run out before you got money to buy more: Never True 08/22/2023 Within the past 12 months,th e food you bought just didn't last and you didn't have enough money to get more: Never True Transportation Answer Date Recorded In the past 12 months, has l ack of transportation kept you from medical appts, meetings, work or from getting things needed for daily living? No 08/22/2023 Utilities Answer Date Recorded In the past 12 months, has t he electric, gas, oil or water company threatened to shut off services in your home? No 08/22/2023 Depression Answer Date Recorded Patient Health Questionnaire-2 [...] Description 01/23/2025 10:00 AM EDT Office Visit [facility] [address] [place], [place] [phone] JameelNatalie barros, OD [address] [place] [address] documented as of this encounter Goals Goal [...] documented as of this encounter Care Teams Submersible Pilot Relationship Specialty Start Date End Date Toma Lozano MD [address] [place], [place] [phone] PCP - General Family Medicine 08/10/18 [facility] 04/21/24 documented as of this encounter
--- OUTSIDE RECORDS SUMMARY | 2025-01-03 15:48 | XMS_ITS | Encounter Summary ---
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
--- OUTSIDE RECORDS SUMMARY | 2025-01-03 15:48 | XMS_ITS | Clinical Summary ---
Author Organization [employer] Address [address] [place] [address] [address] [place] [address] Care Team Providers Care Balance Recesser Name Role Phone Toma Lozano MD Primary Care Provide r Allergies Active Allergy Reactions Criticality Noted Date Comments Penicillin G Dizziness 08/10/2018 Medications sildenafil (Viagra) 50 MG tabletIndicatio ns:Erectile dysfunction, unspecified erectile dysfunction type Take 1 tablet (50 mg) by mouth if needed each day for erectile dysfunction. 10 tablet 1 01/26/20 24 Active dulaglutide (Trulicity) 0.75 MG/0.5ML solution pen-injectorInd ications:Type 2 diabetes mellitus with hyperglycemia, without long-term current use of insulin ([facility]) Inject 0.75 mg under the skin 1 (one) time per week. 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 insulin use ([facility]) TAKE 1 TABLET BY MOUTH EVERY EVENING WITH FOOD 90 tablet 1 08/28/20 24 Active lisinopril 20 MG tablet TAKE 1 TABLET BY MOUTH EVERY MORNING 90 tablet 1 08/28/20 24 Active glipiZIDE XL (Glucotrol XL) 10 MG 24 hr tablet TAKE 1 TABLET BY MOUTH EVERY MORNING WITH BREAKFAST 90 tablet 1 09/04/20 24 Active TRUEplus Lancets 33G miscIndications :Hypertension associated with diabetes (CMS/HCC) (CMS/HCC) Use to check BS once daily 100 each 11 10/03/20 24 Active FREESTYLE LITE test stripIndication s:Hypertension associated with diabetes ([facility]) ([facility]) Use to check BS once daily 100 strip 10/03/20 24 Active Synjardy XR 25-1000 MG 24 hr tabletIndicatio ns:Type 2 diabetes mellitus with hyperglycemia, without long-term current use of insulin ([facility]) TAKE 1 TABLET BY MOUTH EVERY MORNING BEFORE BREAKFAST 90 tablet 1 11/29/19 25 Active Alcohol Swabs (Alcohol Prep) 70 % pads USE TWICE DAILY 100 each 11 11/29/19 25 Active atorvastatin (Lipitor) 40 MG tabletIndicatio ns:Dyslipidemia TAKE 1 TABLET BY MOUTH EVERY MORNING 90 tablet 2 01/02/20 25 Active atorvastatin (Lipitor) 40 MG tabletIndicatio ns:Dyslipidemia TAKE 1 TABLET BY MOUTH EVERY MORNING 90 tablet 10/08/20 24 025 Discontinued Active Problems Problem Noted Date Diagnosed Date Advance directive discussed with patient 025 Assessment & Plan (11/14/2024 2:51 PM EST): MOLST document scanned on chart, patient has the original copy Encounter for preventive care 06/19/2024 Assessment & Plan (06/19/2024 12:17 PM EDT): See HPI SBO (small bowel obstruction) 06/19/2024 Assessment & Plan (06/19/2024 12:15 PM EDT): Resolved now GI referral Constipation 06/19/2024 Assessment & Plan (06/19/2024 12:15 PM EDT): I advise walks and increase water on diet Colace prescribed today Chronic bilateral low back pain without sciatica 06/19/2024 Assessment & Plan (06/19/2024 12:17 PM EDT): Apply heat on affected area Acetaminophen PRN PT referral Periodontal disease 04/25/2024 Encounter for screening and preventative care Assessment & Plan (06/17/2023 1:21 PM EDT): See HPI Colon cancer screening 06/09/2023 Dental caries 03/24/2023 Dental abscess 03/24/2023 Heartburn 03/07/2023 Assessment & Plan (03/07/2023 9:40 AM EDT): I advise patient to avoid NSAIDs, spicy and acid food, I advise to eat at the same time every day, I advise to elevate the head of the bed and take medications as prescribe Abdominal discomfort 02/15/2023 Erectile dysfunction 02/15/2023 Essential hypertension 02/15/2023 Assessment & Plan (11/14/2024 2:45 PM EST): I advised: - Aerobic exercise to reduce BP. Initial goal of 30 min walk 3-5x/week. Increase as tolerated. - low-sodium diet (goal: <2g/day) and heart healthy diet such as DASH to reduce BP and prevent ASCVD. - Home BP monitoring 1-2 x day with goal of <140/90. - Seek immediate medical attention for chest pain, palpitations, SOB, syncope, or sudden changes in mental status. - Do not change or discontinue current prescriptions without first consulting health care provider Assessment & Plan (09/11/2024 12:19 PM EST): I advised - Aerobic exercise to reduce BP. Initial goal of 30 min walk 3-5x/week. Increase as tolerated. - low-sodium diet (goal: <2g/day) and heart healthy diet such as DASH to reduce BP and prevent ASCVD. - Home BP monitoring 1-2 x day with goal of <140/90. - Seek immediate medical attention for chest pain, palpitations, SOB, syncope, or sudden changes in mental status. - Do not change or discontinue current prescriptions without first consulting health care provider Assessment & Plan (04/19/2024 1:24 PM EDT): Controlled, it was advise - Aerobic exercise to reduce BP. Initial goal of 30 min walk 3-5x/week. Increase as tolerated. - low-sodium diet (goal: <2g/day) and heart healthy diet such as DASH to reduce BP and prevent ASCVD. - Home BP monitoring 1-2 x day with goal of <140/90. - Seek immediate medical attention for chest pain, palpitations, SOB, syncope, or sudden changes in mental status. - Do not change or discontinue current prescriptions without first consulting health care provider Assessment & Plan (01/26/2024 10:43 AM EDT): - Aerobic exercise to reduce BP. Initial goal of 30 min walk 3-5x/week. Increase as tolerated. - low-sodium diet (goal: <2g/day) and heart healthy diet such as DASH to reduce BP and prevent ASCVD. - Home BP monitoring 1-2 x day with goal of <140/90. - Seek immediate medical attention for chest pain, palpitations, SOB, syncope, or sudden changes in mental status. - Do not change or discontinue current prescriptions without first consulting health care provider Assessment & Plan (06/09/2023 9:38 AM EDT): - Aerobic exercise to reduce BP. Initial goal of 30 min walk 3-5x/week. Increase as tolerated. - low-sodium diet (goal: <2g/day) and heart healthy diet such as DASH to reduce BP and prevent ASCVD. - Home BP monitoring 1-2 x day with goal of <140/90. - Seek immediate medical attention for chest pain, palpitations, SOB, syncope, or sudden changes in mental status. - Do not change or discontinue current prescriptions without first consulting health care provider Assessment & Plan (03/07/2023 9:30 AM EDT): Maintenance: BMP: up to date Lipid Panel: up to date ASCVD Risk: patient is already on high intensity statin - Aerobic exercise to reduce BP. Initial goal of 30 min walk 3-5x/week. Increase as tolerated. - low-sodium diet (goal: <2g/day) and heart healthy diet such as DASH to reduce BP and prevent ASCVD. - Home BP monitoring 1-2 x day with goal of <140/90. - Seek immediate medical attention for chest pain, palpitations, SOB, syncope, or sudden changes in mental status. - Do not change or discontinue current prescriptions without first consulting health care provider Forgetfulness 02/15/2023 Muscle pain 02/15/2023 Sore throat 02/15/2023 Type 2 diabetes mellitus with hyperglycemia 01/23 Assessment & Plan (11/14/2024 2:46 PM EST): Diabetes is: controlled - Lab Results Component Value Date HGBA1C 6.8 (A) 09/07/2024 HGBA1C 8.0 (A) 04/19/2024 HGBA1C 8.0 (A) 01/26/2024 - Lab Results Component Value Date MICROALBUR 15.0 06/22/2024 CREATININE 1.14 06/19/2024 -Changes: none - Diabetic eye exam:up to date - Diabetic foot exam:pending - Continue lifestyle modifications - Continue current medications - Follow up: 3 months Assessment & Plan (09/11/2024 12:20 PM EST): Diabetes is: controlled - Lab Results Component Value Date HGBA1C 6.8 (A) 09/07/2024 HGBA1C 8.0 (A) 04/19/2024 HGBA1C 8.0 (A) 01/26/2024 - Lab Results Component Value Date MICROALBUR 15.0 06/22/2024 CREATININE 1.14 06/19/2024 -Changes: none - Diabetic eye exam:up to date - Diabetic foot exam: pending - Continue lifestyle modifications - Continue current medications - Follow up: 3 months Assessment & Plan (06/19/2024 12:16 PM EDT): Diabetes is: not controlled - Lab Results Component Value Date HGBA1C 8.0 (A) 04/19/2024 HGBA1C 8.0 (A) 01/26/2024 HGBA1C 7.1 (A) 06/09/2023 - Lab Results Component Value Date MICROALBUR 6.0 06/15/2023 CREATININE 1.14 06/19/2024 -Changes: none - Diabetic eye exam:up to date - Diabetic foot exam:pending - Continue lifestyle modifications - Continue current medications - Follow up: 3 months Assessment & Plan (04/19/2024 1:27 PM EDT): Diabetes is: not controlled - Lab Results Component Value Date HGBA1C 8.0 (A) 04/19/2024 HGBA1C 8.0 (A) 01/26/2024 HGBA1C 7.1 (A) 06/09/2023 - Lab Results Component Value Date MICROALBUR 6.0 06/15/2023 CREATININE 1.18 06/15/2023 -Changes: Patient has some forgetfullness, patient will benefit from skill nursing for medication administration and VNA services, I will aslo start him on trulicity - Diabetic eye exam:up to date - Diabetic foot exam: up to date - Continue lifestyle modifications - Follow up: 3 months Assessment & Plan (01/26/2024 10:43 AM EDT): Diabetes is: not controlled - Lab Results Component Value Date HGBA1C 8.0 (A) 01/26/2024 HGBA1C 7.1 (A) 06/09/2023 HGBA1C 7.1 (A) 02/15/2023 - Lab Results Component Value Date MICROALBUR 6.0 06/15/2023 CREATININE 1.18 06/15/2023 -Changes: I increase his jardiance to 25mg daily - Diabetic eye exam:up to date - Diabetic foot exam:up to date - Continue lifestyle modifications - Follow up: 3 months Assessment & Plan (06/17/2023 1:21 PM EDT): - Lab Results Component Value Date HGBA1C 7.1 (A) 06/09/2023 HGBA1C 7.1 (A) 02/15/2023 HGBA1C 8.0 (H) 01/27/2021 - Lab Results Component Value Date MICROALBUR 6.0 06/15/2023 CREATININE 1.18 06/15/2023 - Diabetic eye exam:has upcoming appointment - Continue lifestyle modifications - Continue current medications Assessment & Plan (06/09/2023 9:39 AM EDT): - Lab Results Component Value Date HGBA1C 7.1 (A) 02/15/2023 HGBA1C 8.0 (H) 01/27/2021 - Lab Results Component Value Date MICROALBUR 0.4 08/03/2022 CREATININE 1.08 05/25/2021 - Diabetic eye exam: upcoming appointment - Diabetic foot exam: pending - Continue lifestyle modifications - Continue current medications Assessment & Plan (03/07/2023 9:31 AM EDT): - Lab Results Component Value Date HGBA1C 7.1 (A) 02/15/2023 HGBA1C 8.0 (H) 01/27/2021 - Lab Results Component Value Date MICROALBUR 0.4 08/03/2022 CREATININE 1.08 05/25/2021 - Diabetic eye exam: up to date - Diabetic foot exam: done today - Continue lifestyle modifications - Continue current medications Hyperlipidemia 02/15/2023 Sensorineural hearing loss 02/15/2023 Encounters Date Type Department Care Team Description 12/31/2024 Refill [facility] [address] [place] [address] [place], Jannet, PREASSEMBLER AND INSPECTOR Dyslipidemia 11/29/2024 Refill [facility] MEDICINE [address] [place] [address] Toma Lozano MD 11/27/2024 Refill [facility] WALK-IN CENTER [address] [place] [address] Toma Lozano MD Type 2 diabetes mellitus with hyperglycemia, without long-term current use of insulin ([facility]) 11/14/2024 9:15 AM EST Office Visit [facility] MEDICINE [address] [place] [address] Toma Lozano MD Advance directive discussed with patient (Primary Dx); Type 2 diabetes mellitus with hyperglycemia, without long-term current use of insulin ([facility]); Essential hypertension 11/14/2024 Travel 10/16/2024 Orders Only [facility] MEDIC[facility] [address] [place] [address] Kari Lanier MD 10/07/2024 Refill [facility] & PEDS [address] [place] [address] Emerald Garcia DO Dyslipidemia from Last 3 Months Immunizations Name Administration Dates Next Due Influenza High-dose Quadrivalent Preservative Fr ee 08/11/2021,08/06/2020 Influenza, High Dose Seasonal, Preservative Free 09/07/2024,08/10/2018 Pfizer Covid-19 Vaccine 12+ 09/07/2024 Pneumococcal Conjugate PCV 13 04/27/2022 Pneumococcal Polysaccharide PPSV23 08/10/2018 Tdap 04/27/2022 Zoster, Recombinant 12/04/2021,09/28/2021 Zoster, live 09/20/2018 Family History Medical History Relation Name Comments Alzheimer's disease Brother 1 Phil Alcohol abuse Brother 2 Omar Alcohol abuse Brother 3 Edwin Pacemaker Brother 3 Edwin No Known Problems Daughter Sapna No Known Problems Father Jorge No Known Problems Father's Brother 1 No Known Problems Father's Brother 2 No Known Problems Father's Brother 3 No Known Problems Father's Brother 4 No Known Problems Father's Sister 1 No Known Problems Father's Sister 2 No Known Problems Father's Sister 3 No Known Problems Father's Sister 4 No Known Problems Maternal Grandfather No Known Problems Maternal Grandmother Diabetes Mother Navya No Known Problems Mother's Brother 1 No Known Problems Mother's Brother 2 No Known Problems Mother's Sister 1 No Known Problems Mother's Sister 2 No Known Problems Paternal Grandfather No Known Problems Paternal Grandmother Diabetes Sister 1 Rafeala History of open heart surgery Sister 1 Rafeala Diabetes Sister 2 Juaquina History of open heart surgery Sister 2 Juaquina Diabetes Sister 3 Laurence History of open heart surgery Sister 3 Laurence Diabetes Sister 4 Adilene Diabetes Sister 5 Iris Diabetes Sister 6 Ada Relation Name Status Comments Brother 1 Phil Alive Brother 2 Omar Brother 3 Edwin Daughter Sapna Alive Father Jorge Father's Brother 1 Father's Brother 2 Father's Brother 3 Father's Brother 4 Father's Sister 1 Father's Sister 2 Father's Sister 3 Father's Sister 4 Maternal Grandfather Maternal Grandmother Mother Navya Mother's Brother 1 Mother's Brother 2 Mother's Sister 1 Mother's Sister 2 Paternal Grandfather Paternal Grandmother Sister 1 Rafeala Alive Sister 2 Juaquina Alive Sister 3 Laurence Sister 4 Adilene Sister 5 Iris Sister 6 Ada Social History Tobacco Use Types Packs/Day Years Used Date Smoking Tobacco: Former Cigarettes Q uit: 09/25/2014 Passive Smoke Exposure: Never Smokeless Tobacco: Never Tobacco Cessation:Counseling Given: Not Answered Comments:Only smoked once in a while when I was drinking a [...] not to disclose 2021 10:34 AM EDT Last Filed Vital Signs Vital Sign Reading Time Taken Comments Blood Pressure 127/75 11/14/2024 9:21 AM EST Pulse 73 11/14/2024 9:21 AM EST Temperature 36.4 ??C (97.6 ??F) 11/14/2024 9:21 AM ES T Respiratory Rate 14 11/14/2024 9:21 AM EST Oxygen Saturation 99% 11/14/2024 9:21 AM EST Inhaled Oxygen Concentration - - Weight 90.4 kg (199 lb 3.2 oz) 11/14/2024 9:21 A M EST Height 175.3 cm (5' 9 ) 11/14/2024 9:21 AM EST Body Mass Index 29.42 11/14/2024 9:21 AM EST Plan of Treatment Upcoming Encounters Date Type Department Care Team (Late st Contact Info) Description 01/23/2025 10:00 AM EDT Office Visit [facility] OPTOMETRY [address] [place] [address] Jameel, Natalie, OD [address] [place] [address] Health Maintenance Due Date Last Done Comments CT Colonography 1950 Colonoscopy 1950 Colorectal Cancer Screening 1950 Dental Prophylaxis 1950 FIT DNA/Cologuard 1950 FIT 1950 FOBT 1950 Sigmoidoscopy 1950 Dental Oral Exam 08/15/2021 02/12/2021 Dental X-Ray: Bitewings 02/13/2022 02/12/2021 Diabetes: Foot Exam 03/07/2024 03/07/2023, Diabetes: Hemoglobin A1C 03/07/2025 024, 04/19/2024, 01/26/2024, Additional history exists RSV Patients and Patients Aged 60 years or older (1 - 1-dose 75+ series) 2025 Lipid Panel 06/19/2025 06/19/2024, 05/25, 08/03/2022, Additional history exists Diabetes: Urine Protein Screening 06/22/2025 06/22/2024, 06/15/2023, 08/03/2022, Additional history exists Eye Exam 08/23/2025 08/23/2023, 07/26, 08/23/2023, Additional history exists Alcohol/Substance Use Screening 09/26/2025 09/26/2024 Depression Screening 09/26/2025 09/26/2024, 09/26/20 SDOH Screening 09/26/2025 09/26/2024 Tobacco Screening 11/14/2025 11/14/2024 Dental X-Ray: Full Mouth 03/25/2026 03/24/2023, 01/23 DTaP/Tdap/Td Vaccines (2 - Td or Tdap) 04/27/2032 04/27/2022 Zoster Vaccines Completed 12/04/2021, 03/2021, 09/20/2018 Pneumococcal Vaccine: 50+ Years Completed 04/27/2022, 08/10/2018 COVID-19 Vaccine Completed 09/07/2024, , 10/07/2021, Additional history exists Influenza Vaccine Completed 09/07/2024, , 08/06/2020, Additional history exists Hepatitis C Screening Completed 09/26/2024 HIB Vaccines Aged Out No longer eligi ble based on patient's age to complete this topic HPV Vaccines Aged Out No longer eligi ble based on patient's age to complete this topic Hepatitis A Vaccines Aged Out No long er eligible based on patient's age to complete this topic Hepatitis B Vaccines Aged Out No long er eligible based on patient's age to complete this topic IPV Vaccines Aged Out No longer eligi ble based on patient's age to complete this topic Meningococcal Vaccine Aged Out No amol licha eligible based on patient's age to complete this topic RSV under 20 months Aged Out No longe r eligible based on patient's age to complete this topic Rotavirus Vaccines Aged Out No longer eligible based on patient's age to complete this topic Goals Goal Patient Goal Type Associated Problems Recent Progress Patient-Stated? Author Blood Pressure < 140/90 Blood Pressure 127/75(2024 9:21 AM EST) No Anila-Ria Yu, PharmD Hemoglobin A1c < 8 Result Component 6.8( 1:52 PM EST) No Anila-Ria Yu PharmD Procedures Procedure Name Priority Date/Time Associated Diagnosis Comments POCT GLUCOSE Routine 11/14/2024 9:27 AM EST Type 2 diabetes mellitus with hyperglycemia, without long-term current use of insulin (CMS/HCC) US AORTA Routine 10/16/2024 9:23 AM EST HEPATITIS C AB W/REFL TO HCV RNA, QN, PCR Routine 09/26/2024 10:52 AM EST Screen for sexually transmitted diseases POCT GLYCATED HEMOGLOBIN, TOTAL Routine 09/07/2024 1:52 PM EST Type 2 diabetes mellitus with hyperglycemia, without long-term current use of insulin (CMS/HCC) ALBUMIN, RANDOM URINE W/CREATININE Routine 06/22/2024 10:20 AM EDT Encounter for preventive care LIPID PANEL WITH REFLEX TO DIRECT LDL Routine 06/19/2024 10:37 AM EDT Encounter for preventive care PANORAMIC RADIOGRAPHIC IMAGE Routine 03/24/2023 10:30 AM EDT INTRAORAL - COMPLETE SERIES OF RADIOGRAPHIC IMAGES Routine 02/12/2021 12:00 AM EDT COMPREHENSIVE ORAL EVALUATION - NEW OR ESTABLISHED PATIENT Routine 02/12/2021 12:00 AM EDT from Last 3 Months or Most Recently Relevant to Health Maintenance Results * POCT Glucose (11/14/2024 9:27 AM EST) Glucose Blood, POC 145 60 - 200 mg/dL QC Media Lot # [id number] Lot# Expiration Date [id number] Blood Capillary blood specimen / Unknown 11/14/2024 9:27 AM EST Toma Lund MD POINT OF CARE TEST EN TER/EDIT ORDERABLES Final Result * US aorta (10/16/2024 9:23 AM EST) Anatomical Region Laterality Modality Abdomen Ultrasound 10/16/2024 9:23 AM EST Narrative 11/05/2024 12:10 PM EST ? [facility] ?[address] ?[place] [address] ? Ultrasound Report ? Signed ? Patient: Carlita Aki,Indra ?MR#: ?? [id number] ? : 1950 ?Acct:[id number] ? Age/Sex: 74 / M ?ADM Date: 10/16/24 ? Loc: HO.US ? Attending Dr: Kari Guerrero MD ? Ordering Physician: Kari Guerrero MD ?? Date of Service: 10/16/24 ?? Procedure(s): US aorta ?? Accession Number(s): [id number] ? cc: Toma Lozano MD; Kari Guerrero MD ? EXAMINATION: ?? US RETROPERITONEAL LIMITED (AORTA) ? CLINICAL INFORMATION: ?? History of smoking. Encounter for screening for cardiovascular disorder. ? COMPARISON: ?? CT abdomen and pelvis 06/17/2024 ? TECHNIQUE: ?? Duffy-scale, color Doppler and spectral Doppler evaluation of the ?? abdominal aorta. ? FINDINGS: ?? The aorta is normal. The measurements of the aorta in maximum AP and ?? transverse dimensions respectively are as follows: ? Proximal: 1.7 x 1.8 cm. ?? Mid: 2.0 x 1.8 cm. ?? Distal: 1.8 x 1.7 cm. ?? PSV: 100 cm/s. ? The measurements of the common iliac arteries in maximum AP and TRV ?? dimensions are as follows: ? Right Common Iliac Artery: 1.2 x 1.3 cm. ?? Left Common Iliac Artery: 1.2 x 1.1 cm. ? US/US aorta ?? IMPRESSION: ?? No abdominal aortic aneurysm. ? Electronically signed by: ??Mukund Gore MD ??11/05/2024 12:07 PM EST RP ? Dictated By: ?Mukund Gore MD ? Signed By: ?<Electronically signed by Mukund Gore MD in OV> ?11/05/24 1207 ? DD/ 0923 ? TD/TT: 10/16/24 0928 ? Electronics Technology Instructor: ? Procedure Note Milena, Image - 11/05/[address] [address] Ultrasound Report Signed Patient: Indra MalcolmMR#: [id number] : 1950Acct:[id number] Age/Sex: 74 / MADM Date: 10/16/24 Loc: HO.US Attending Dr: Kari Guerrero MD Ordering Physician: Kari Guerrero MD Date of Service: 10/16/24 Procedure(s): US aorta Accession Number(s): [id number] cc: Toma Lozano MD; Kari Guerrero MD EXAMINATION: US RETROPERITONEAL LIMITED (AORTA) CLINICAL INFORMATION: History of smoking. Encounter for screening for cardiovascular disorder. COMPARISON: CT abdomen and pelvis 06/17/2024 TECHNIQUE: Duffy-scale, color Doppler and spectral Doppler evaluation of the abdominal aorta. FINDINGS: The aorta is normal. The measurements of the aorta in maximum AP and transverse dimensions respectively are as follows: Proximal: 1.7 x 1.8 cm. Mid: 2.0 x 1.8 cm. Distal: 1.8 x 1.7 cm. PSV: 100 cm/s. The measurements of the common iliac arteries in maximum AP and TRV dimensions are as follows: Right Common Iliac Artery: 1.2 x 1.3 cm. Left Common Iliac Artery: 1.2 x 1.1 cm. US/US aorta IMPRESSION: No abdominal aortic aneurysm. Electronically signed by: Mukund Gore MD 11/05/2024 12:07 PM EST Dictated By: Mukund Gore MD Signed By: <Electronically signed by Mukund Gore MD in OV> 11/05/24 1207 DD/ 0923 TD/TT: 10/16/24 0928 Electronics Technology Instructor: Kari Lanier MD [facility] US PROCEDURES Edited Res ult - Final * Hepatitis C Antibody with Reflex to HCV, RNA, Quantitative, Real-Time PCR (09/26/2024 10:52 AM EST) Hepatitis C Antibody Nonreactive Nonreactive [facility] Comment:Antibodies to HCV no t detected; does not exclude early acuteHCV infection. Blood Venous blood specimen / Unknown 09/26/2024 10:52 AM EST 09/26/2024 12:56 PM EST Kari Lanier MD LAB BLOOD ORDERABLES Final R esult Performing Organization Address City/[facility]/ZIP Co de Phone Number [facility] [address] [place] [address] [phone] * (ABNORMAL) POCT HGB A1C (09/07/2024 1:52 PM EST) Hemoglobin A1C 6.8(A) 4.0 - 6.0 % QC Media Lot # [id number] Lot# Expiration Date [id number] Blood 09/07/2024 1:52 PM EST Toma Lund MD POINT OF CARE TEST EN TER/EDIT ORDERABLES Final Result * Albumin, Random Urine W/Creatinine (06/22/2024 10:20 AM EDT) Creatinine, Urine 69.81 mg/dL [facility] Microalbumin Urine 15.0 mg/L [facility] Microalbum Creatinine Ratio Ur 21.4 <30 ug/mg cr [facility] Comment:Albumin/Creatinine R atio Reference Ranges: Normal: < 30 ug/mg creatinine Microalbuminuria: 30 - 300 ug/mg creatinineClinical Albuminuria: > 300 ug/mg creatinine Urine (Urine, Random) 06/22/2024 10:20 AM EDT 06/22/2024 11:04 AM EDT us Toma Lund MD LAB URINE ORDERABLES Final Result Performing Organization Address City/[facility]/ZIP Co de Phone Number [facility] [address] [place] [address] [phone] * Lipid Panel with Reflex to Direct LDL (06/19/2024 10:37 AM EDT) Triglycerides 75 <150 mg/dL [facility] Comment:Desirable Triglyceri de: less than 150 mg/dLBorderline High Triglyceride 150-199 mg/dLHigh Triglyceride: 200-499 mg/dLVery High Triglyceride: greater than or equal to 5OO mg/dL Cholesterol 116 <200 mg/dL [facility] Comment:Desirable Cholestero l: less than 200 mg/dLBorderline High Cholesterol: 200-239 mg/dLHigh Cholesterol: greater than 239 mg/dL LDL Cholesterol Calculated 56 <100 mg/dL [facility] Comment:Desirable LDL: less than 100 mg/dLNear Optimal/Above Optimal LDL: 110- 129 mg/dLBorderline High LDL: 130-159 mg/dLHigh LDL: 160-189 mg/dLVery High LDL: greater than or equal to 190 mg/dL HDL Cholesterol 45 >40 mg/dL [facility] Comment:Desirable HDL: great er than 40 mg/dL Note: This HDL assay may give artificially low results in patients with liver disease. Blood 06/19/2024 10:3 7 AM EDT 06/19/2024 11:21 AM EDT Toma Lund MD LAB BLOOD ORDERABLES Final Result [facility] [address] [place] [address] [id number] [phone] from Last 3 Months or Most Recently Relevant to Health Maintenance [place] [address] [place] [address] STANDARD MEDICARE [facility] MEDICAID STAND ADULT Care Teams Balance Recesser Relationship Specialty Start Date End Date Toma Lozano MD [address] [place] [address] PCP - General Family Medicine 08/10/18 [facility] 04/21/24
--- OUTSIDE RECORDS SUMMARY | 2025-01-03 15:48 | XMS_ITS | Encounter Summary ---
Author Organization [employer] Address [address] [place] [address] Care Team Providers Care Ranch Hand Supervisor Name Role Phone Toma Lozano MD Primary Care Provide r Encounter Details Date Type Department Care Team (Late st Contact Info) Description 12/20/2022 Orders Only [facility] [address] [place] [address] Emerald Carvajal LPN Social History Tobacco Use Types Packs/Day Years Used Date Smoking Tobacco: Never Assessed Sex and Gender Information Value Date Recorded [...] Description 01/23/2025 10:00 AM EDT Office Visit [facility] [address] [place] [address] JameelNatalie barros, OD [address] [place] [address] documented as of this encounter Visit Diagnoses Not on filedocumented in this encounter Care Teams Ranch Hand Supervisor Relationship Specialty Start Date End Date Toma Lozano MD [address] [place] [address] PCP - General Family Medicine 08/10/18 [facility] 04/21/24 documented as of this encounter
--- OUTSIDE RECORDS SUMMARY | 2025-01-03 15:48 | XMS_ITS | Encounter Summary ---
Author Organization [employer] Address [address] [place] [address] Care Team Providers Care Customer Service Leader Name Role Phone Toma Lozano MD Primary Care Provide r Reason for Visit * Reason Onset Date Comments Appointment Request 09/30/2023 Encounter Details Date Type Department Care Team ([facility] st Contact Info) Description 09/30/2023 Telephone [facility] [address] [place], [place] [phone] Toma Lozano MD [address] [place] [address] Appointment Request Social History Tobacco Use Types Packs/Day [...] encounter Miscellaneous Notes * Telephone Encounter - Louise Stanley - 09/30/2023 12:57 PM EST Tc from [employer] 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 [phone] documented in this encounter Plan of Treatment Upcoming Encounters Date Type Department Care Team (Late st Contact Info) Description 01/23/2025 10:00 AM EDT Office Visit [facility] [address] [place] [address] Natalie Jorgensen, OD [address] [place] [address] documented as of this encounter Goals Goal [...] documented as of this encounter Care Teams Customer Service Leader Relationship Specialty Start Date End Date Toma Lozano MD [address] [place] [address] PCP - General Family Medicine 08/10/18 [facility] 04/21/24 documented as of this encounter
== END 2025-01-03 12:56 | disposition home or self-care (01) ==
LOC: HO.HGI 12:31
PROVIDERS: PCP Internal Medicine; Visit Provider Nurse Practitioner Family
DX: K59.01 Slow transit constipation (principal); K57.90 Diverticulosis of intestine, part unspecified, without perforation or abscess without bleeding
CPT/HCPCS: 99203

== ENCOUNTER → 2025-01-03 12:30 | Outpatient (BNVA) | payer MEDICARE, MEDICAID, SELFPAY | PROVIDERS: PCP Internal Medicine; Visit Provider Nurse Practitioner Family | DX: K59.01 Slow transit constipation (principal); K57.90 Diverticulosis of intestine, part unspecified, without perforation or abscess without bleeding; I10 Essential (primary) hypertension; E78.5 Hyperlipidemia, unspecified | CPT/HCPCS: 99202 ==

== ENCOUNTER 2025-07-11 09:44 | Outpatient (REF) | payer OTHER, SELFPAY ==
[2025-07-11 12:05] LABS: Alanine Aminotransferase 34 U/L (0-40); Albumin Level 4.8 g/dL (3.5-5.0); Alkaline Phosphatase 63 U/L (39-117); Anion Gap 10 (12-20); Aspartate Amino Transferase 25 U/L (5-37); Blood Urea Nitrogen 26 mg/dL (9-16); Calcium 9.8 mg/dL (8.4-10.2); Carbon Dioxide 24 mmol/L (22-29); Chloride 112 mmol/L (96-108); Cholesterol 145 mg/dL (<200); Estimated Glomerular Filt Rate > 60; HDL Cholesterol 60 mg/dL (>40); Potassium 4.6 mmol/L (3.3-5.1); Sodium 141 mmol/L (135-145); Total Protein 7.3 g/dL (6.5-8.0); Triglycerides 68 mg/dL (<150)
[2025-07-11 12:38] LABS: Microalbum/Creatinine Ratio Ur 45.2 ug/mg cr (<30)
== END 2025-07-11 09:45 | disposition home or self-care (01) ==
LOC: HO.HHCL 09:44
PROVIDERS: PCP Internal Medicine; Visit Provider Internal Medicine
DX: E11.65 Type 2 diabetes mellitus with hyperglycemia (principal)
CPT/HCPCS: 36415; 80053; 80061; 82043; 82570